=== PATIENT | female | born 1950 | race Caucasian/White ===

== ENCOUNTER 2024-09-04 11:55 | Emergency (ER) | payer MEDICARE, BC, SELFPAY ==
[2024-09-04 12:01] VITALS: RESP 16; TEMP 35.8; BMI 32.3
--- NOTE | 2024-09-04 12:23 | ED_ITS ---
HPI - General Adult General Chief complaint: Eye Problems Stated complaint: left eye bleeding Time Seen by Provider: 09/04/24 11:57 Source: patient Mode of arrival: ambulatory Limitations: no limitations History of Present Illness HPI narrative: 74-year-old female coming in today concerned about waking up this morning and noticing that there was blood in the white portion of her eye. Patient states that she had a botched cataract surgery in April of last year and she has been blind in that eye since. She states that she can only see the top Letter on an eye chart and nothing else. she states that her vision is unchanged. She denies pain in that eye. She denies discharge. She states that that ice constantly itching since her surgery and she rubs it quite constantly. She denies any trauma to the eye. She denies headache. She denies changes of vision in the other eye. patient is here today because she would like me to make sure that her lens is in the proper location. Related Data Allergies Allergy/AdvReac Type Severity Reaction Status Date / Time No Known Drug Allergies Allergy Verified 09/04/24 12:01 Review of Systems Status of ROS: Reports: 6 or more systems reviewed and unremarkable except as noted in History and below PFSH PFS Social History Smoking Status: Former smoker Do you use any of these nicotine containing products: None Second hand tobacco smoke exposure: No How often do you have a drink containing alcohol: never How often do you have six or more drinks on one occasion: Less than monthly AUDIT-C Alcohol total score: 1 Non-prescribed substance use: denies use service: No Exam Narrative: Exam Narrative: Well-nourished well-developed patient , anxious. Alert and oriented. Answers questions appropriately. Thoughts are goal oriented and rational. No tangential or magical thinking noted. Patient speaks in full sentences without needing to catch Her breath. HEENT: Normocephalic atraumatic. Extraocular muscles are intact. Conjunctivae are moist without any icterus noted. she has small conjunctival hemorrhage on the medial left eye. Moist mucous membranes. Pupils are reactive to light. No foreign body visualized. Skin: Well perfused. Const: Vital Signs, click to edit/add: Vital Signs - 24 hr 09/04/24 12:01 Temperature 96.5 F L Respiratory Rate 16 Oxygen Delivery Me thod Room Air Course Course ED Course: Discussed with the patient that I would not be able to tell her if her lens was in the proper location. Discussed that we would have to transfer her to an emergency department with an general maintenance helper however, without pain, without changes in vision, in without any other concerning symptoms did not feel that this was necessary. patient is, However given the option to do this and she declines. I do recommend she follow up in the Eye Clinic on Thursday morning. phone number of the [facility] is given to the patient upon discharge. I do recommend she follow up Emergently if she develops any pain or vision changes. Vital Signs Vital signs: Initial Vital Signs Temperature 96.5 F L 09/04/24 12:01 Temperature Source Temporal Artery Scan 09/04/24 12:01 Pulse Rhythm Regular 09/04/24 12:01 Respiratory Rate 16 09/04/24 12:01 Oxygen Delivery Method Room Air 09/04/24 12:01 Vital Signs Temperature 96.5 F L 09/04/24 12:01 Respiratory Rate 16 09/04/24 12:01 Oxygen Delivery Method Room Air 09/04/24 12:01 Temperature 96.5 F L 09/04/24 12:01 Respiratory Rate 16 09/04/24 12:01 Oxygen Delivery Method Room Air 09/04/24 12:01 Medical Decision Making MDM Narrative Medical decision making narrative: 74-year-old female with subconjunctival hemorrhage. Likely due to irritation from chronic itching of the eye. Plan per above. Discharge Plan Discharge Clinical Impression: Subconjunctival hemorrhage Patient Disposition: Home, Self-Care Condition: Stable Additional Instructions: The bleeding seen in the eye today is not an emergency and can occur secondary to irritation. I do recommend you follow up in the [facility] tomorrow. phone number will be provided to you upon discharge. If you develop any vision changes or pain in that eye, you should follow up in the emergency department. Stand Alone Forms: [employer] Info Instructions
--- OUTSIDE RECORDS SUMMARY | 2024-09-04 12:50 | XMS_ITS | Encounter Summary ---
Author Organization [facility] Address [address] [place] [id number] Care Team Providers Care Plate And Weld Inspector Name Role Phone Elsewhere, Pcp Primary Care Provider Unavailabl e Reason for Visit * Reason Onset Date Comments Pre-visit Testing Orders 08/03/2024 Encounter Details Date Type Department Care Team (Latest Contact Info) Description 08/03/2024 Clinical Communication Department of Ophthalmology in [place], [place] [address] [place] [address] Sylvie Parry M.D. [address] [place] [phone] Pre-visit Testing Orders Social History Tobacco Use Types Packs/Day Years Used Date Smoking Tobacco: Former Cigarettes Q uit: 06/01/2011 E-cigarettes Quit: 2019 Passive Smoke Exposure: Never Smokeless Tobacco: Never Comments:Quit several times over the years Alcohol Use Standard Drinks/Week Comments No 0 (1 standard drink = 0.6 oz pur e alcohol) [facility] Utilities Answer Date Recorded In the past 12 months has e electric, gas, oil, or water company threatened to shut off services in your home? No 05/16/2024 Humiliation, Afraid, Rape, and Kick questionnair e Answer Date Recorded Within the last year, have y ou been afraid of your partner or ex-partner? No 12/11/2022 Within the last year, have y ou been humiliated or emotionally abused in other ways by your partner or ex-partner? No Within the last year, have y ou been kicked, hit, slapped, or otherwise physically hurt by your partner or ex-partner? No 12/11/2022 Within the last year, have y ou been raped or forced to have any kind of sexual activity by your partner or ex-partner? No 12/11/2022 Social Connection and Isolat ion Panel [NHANES] Answer Date Recorded In a typical week, how many times do you talk on the phone with family, friends, or neighbors? More than three times a week 04/01/2021 How often do you get togethe r with friends or relatives? Once a week 04/01/2021 How often do you attend chur or scientologist services? Never 04/01/2021 Do you belong to any clubs o r organizations such as muslim groups, unions, fraternal or athletic groups, or school groups? No 04/01/2021 How often do you attend meet ings of the clubs or organizations you belong to? Never 04/01/2021 Are you , , di vorced, , never , or living with a partner? 04/01/2021 AUDIT-C Answer Date Recorded Q1: How often do you have a drink containing alc ohol? Never 04/01/2021 Average Number of Drinks Not on file 021 Frequency of Binge Drinking Not on file 06/2020 Overall Financial Resource Strain (CARDIA) Answe r Date Recorded How hard is it for you to pa y for the very basics like food, housing, medical care, and heating? Not hard at all 12/11/2022 PHQ-2 Answer Date Recorded PHQ-2 Score 6 05/30/2019 [facility] Occupat [facility] - Occupational Stress Questionnaire Answer Date Recorded Do you feel stress - tense, restless, nervous, or anxious, or unable to sleep at night because your mind is troubled all the time - these days? Rather much 04/01/2021 Exercise Vital Sign Answer Date Recorde d On average, how many days pe r week do you engage in moderate to strenuous exercise (like a brisk walk)? 7 days 05/16/2024 On average, how many minutes do you engage in exercise at this level? 40 min 05/16/2024 Hunger Vital Sign Answer Date Recorded Within the past 12 months, y ou worried that your food would run out before you got the money to buy more. Never true 05/16/20 24 Within the past 12 months, t he food you bought just didn't last and you didn't have money to get more. Never true 05/16/2024 PRAPARE - Transportation Answer Date Re corded In the past 12 months, has l ack of transportation kept you from medical appointments or from getting medications? No 05/01 In the past 12 months, has l ack of transportation kept you from meetings, work, or from getting things needed for daily living? No 05/16/2024 Nutrition Answer Date Recorded On average, how many serving s of fruits and vegetables do you eat per day (serving size is equal to 1 cup or approximately the size of a tennis ball)? 3-5 05/16/2024 Dental Answer Date Recorded Dental: Regular Dentist Yes 06/05/19 Employment Answer Date Recorded Employment status Retired 05/16/2024 Housing Stability Answer Date Recorded What is your living situation today? I have a [facility] place to live 05/16/2024 Education Answer Date Recorded What is the highest level of school you have completed or the highest degree you have received? Master's degree (e.g., MA, MS, Ivet, MEd, DIAGRAMMER AND SEAMER, INDY) 04/05/2019 Comments No Sex and Gender Information Value Date Recorded Sex Assigned at Female 11/02/2017 11:58 PM CDT Legal Sex Female 3:26 PM TOP SCREW Gender Identity Female 11/02/2017 11:58 PM CDT Sexual Orientation Straight 11/02/2017 11 :58 PM CDT documented as of this encounter Miscellaneous Notes * Telephone Encounter - Oksana Montez, C.O.T. - 08/09/2024 9:28 AM CDT Orders in documented in this encounter Plan of Treatment Upcoming Encounters Date Type Department Care Team (Latest Contact Info) Description 09/22/2024 12:30 PM CDT Ancillary Procedure Department of Ophthalmology in [place], [place] [address] [place] [address] 09/22/2024 1:00 PM CDT Ancillary Procedure Department of Ophthalmology in [place], [place] [address] [place] [phone] Sylvie Parry M.D. [address] [place] [phone] 09/22/2024 1:15 PM CDT Ancillary Procedure Department of Ophthalmology in [place], [place] [address] [place] [phone] Sylvie Parry M.D. [address] [place] [phone] 09/22/2024 2:45 PM CDT Comprehensive Visit Department of Ophthalmology in [place], [place] [address] [place] [phone] Sylvie Parry M.D. [address] [place] [phone] Scheduled Orders Name Type Priority Associated Diagnoses Orde r Schedule Scheimpflug Tomography (Pentacam) - OU - Both Eyes Ophthalmology Routine Other Hereditary Corneal Dystrophies Bilateral Expected: 08/09/2024 (Approximate), Expires: 08/09/2026 Optical Coherence Tomography - Macula/Retina - OU - Both Eyes Ophthalmology Routine Blurred Vision Expected: 08/09/2024 (Approximate), Expires: 08/09/2026 documented as of this encounter Visit Diagnoses Diagnosis Blurred Vision- Primary Other Hereditary Corneal Dystrophies Bilateral documented in this encounter Additional Health Concerns Assessment Noted Time PHQ-9 Depression Total Score: 21 019 1:40 PM TOP SCREW documented as of this encounter Care Teams Plate And Weld Inspector Relationship Specialty Start Date End Date Elsewhere, Pcp PCP - General Family Medicine 11/21/20 documented as of this encounter
--- OUTSIDE RECORDS SUMMARY | 2024-09-04 12:50 | XMS_ITS | Encounter Summary ---
Author Organization [facility] er Address [address] [place] [address] Care Team Providers Care Human Resources Trainee Name Role Phone Chayo Espinal MD Primary Care Provider [phone] Reason for Visit * Reason Comments Med Refill Encounter Details Date Type Department Care Team (Late st Contact Info) Description 06/15/2023 Refill SE Internal Medicine [address] [place] [phone] Chayo Espinal MD [address] [place] [phone] Insomnia, unspecified type Social History Tobacco Use Types Packs/Day Years Used Date Smoking Tobacco: Former Cigarettes 1 48 1 972 - 2012 Passive Smoke Exposure: Never Smokeless Tobacco: Never Alcohol Use Standard Drinks/Week Comments Never 0 (1 standard drink = 0.6 oz pur e alcohol) Humiliation, Afraid, Rape, and Kick questionnair e Answer Date Recorded Within the last year, have y ou been afraid of your partner or ex-partner? No 06/10/2023 Within the last year, have y ou been humiliated or emotionally abused in other ways by your partner or ex-partner? No Within the last year, have y ou been kicked, hit, slapped, or otherwise physically hurt by your partner or ex-partner? No 06/10/2023 Within the last year, have y ou been raped or forced to have any kind of sexual activity by your partner or ex-partner? No 06/10/2023 Social Connection and Isolat ion Panel [NHANES] Answer Date Recorded In a typical week, how many times do you talk on the phone with family, friends, or neighbors? More than three times a week 06/10/2023 How often do you get togethe r with friends or relatives? Once a week 06/10/2023 How often do you attend chur ch or congregational services? Never 06/10/2023 Do you belong to any clubs o r organizations such as buddhism groups, unions, fraternal or athletic groups, or school groups? No 06/10/2023 How often do you attend meet ings of the clubs or organizations you belong to? Never 06/10/2023 Are you , , di vorced, , never , or living with a partner? 06/10/2023 AUDIT-C Answer Date Recorded Q1: How often do you have a drink containing alcohol? Never 06/10/2023 Q2: How many drinks containi ng alcohol do you have on a typical day when you are drinking? Patient does not drink Q3: How often do you have si x or more drinks on one occasion? Never 06/10/2023 Overall Financial Resource Strain (CARDIA) Answe r Date Recorded How hard is it for you to pa y for the very basics like food, housing, medical care, and heating? Not hard at all 06/10/2023 PHQ-2 Answer Date Recorded PHQ-9 Total Score 18 06/10/2023 [facility] Questionnaire Answer Date Recorded Do you feel stress - tense, restless, nervous, or anxious, or unable to sleep at night because your mind is troubled all the time - these days? Very much 06/10/2023 Exercise Vital Sign Answer Date Recorde d On average, how many days pe r week do you engage in moderate to strenuous exercise (like a brisk walk)? 5 days 06/10/2023 On average, how many minutes do you engage in exercise at this level? 40 min 06/10/2023 Hunger Vital Sign Answer Date Recorded Within the past 12 months, y ou worried that your food would run out before you got the money to buy more. Never true 06/10/19 24 Within the past 12 months, t he food you bought just didn't last and you didn't have money to get more. Never true 06/10/2023 PRAPARE - Transportation Answer Date Re corded In the past 12 months, has l ack of transportation kept you from medical appointments or from getting medications? No 06/01 In the past 12 months, has l ack of transportation kept you from meetings, work, or from getting things needed for daily living? No 06/10/2023 Housing Stability Vital Sign Answer Ed e Recorded In the last 12 months, was t here a time when you were not able to pay the mortgage or rent on time? No 06/10/2023 In the last 12 months, how many places have you lived? 1 06/10/2023 In the last 12 months, was t here a time when you did not have a steady place to sleep or slept in a long-term (including now)? No 06/10/2023 Education Answer Date Recorded What is the highest level of school you have completed or the highest degree you have received? Bachelor's degree (e.g., BA, AB, BS) 08/12/2019 Comments Unknown Sex and Gender Information Value Date Recorded Sex Assigned at Female 04/29/2022 4:47 PM STANDARDS ENGINEER Legal Sex Female 7:50 PM CDT Gender Identity Female 04/29/2022 4:47 PM STANDARDS ENGINEER Sexual Orientation Straight 04/29/2022 4: 47 PM STANDARDS ENGINEER documented as of this encounter Miscellaneous Notes * Telephone Encounter - Glenis Weinstein RN - 06/15/2023 1:19 PM CST Upcoming appointment with provider: 08/11/2023 Last visit in provider department: 06/11/2023 Last visit requested medication was discussed: Last Rx: Requested Prescriptions Pending Prescriptions Disp Refills zolpidem (AMBIEN) 5 MG tablet [Pharmacy Med Name: Zolpidem Tartrate Oral Tablet 5 MG] 15 tablet 0 Sig: TAKE ONE TABLET BY MOUTH ONE TIME DAILY at night as needed for sleep Labs: Vitals: BP Readings from Last 2 Encounters: 06/11/23 126/66 09/23/22 128/74 Last Controlled Substance Agreement (CSA): Last Random Urine Drug Screen (RUDS): DARDS ENGINEER documented in this encounter Plan of Treatment Upcoming Encounters Date Type Department Care Team (Late st Contact Info) Description 09/29/2024 3:30 PM CDT Office Visit Internal Medicine [address] [place] [phone] Chayo Espinal MD [address] [place] [phone] documented as of this encounter Visit Diagnoses Diagnosis Insomnia, unspecified type documented in this encounter Care Teams Human Resources Trainee Relationship Specialty Start Date End Date Chayo Espinal MD [address] [place] [phone] PCP - General Internal Medicine 09/12/19 documented as of this encounter
--- OUTSIDE RECORDS SUMMARY | 2024-09-04 12:50 | XMS_ITS | Encounter Summary ---
Author Organization [facility] Address [address] [place] [address] Care Team Providers Care Graduate Assistant Name Role Phone Elsewhere, Pcp Primary Care Provider Unavailabl e Reason for Visit * Reason Onset Date Comments Appt Request 08/01/2024 Encounter Details Date Type Department Care Team (Latest Contact Info) Description 08/01/2024 Clinical Communication Department of Ophthalmology in [place], [place] [address] [place] [address] Provider, Unknown Appt Request Social History Tobacco Use Types Packs/Day Years Used Date Smoking Tobacco: Former Cigarettes Q uit: 06/01/2011 E-cigarettes Quit: 2019 Passive Smoke Exposure: Never Smokeless Tobacco: Never Comments:Quit several times over the years Alcohol Use Standard Drinks/Week Comments No 0 (1 standard drink = 0.6 oz pur e alcohol) [facility] Utilities Answer Date Recorded In the past 12 months has [facility] [employer] gas, oil, or water [employer] threatened to shut off services in your [...] 04/01/2021 How often do you attend chur ch or hoahaoism services? Never 04/01/2021 Do you belong to any clubs o r organizations such as pentecostal groups, unions, fraternal or athletic groups, or [...] Answer Date Recorded PHQ-2 Score 6 05/30/2019 [facility]at iondc Health - Occupational Stress Questionnaire Answer Date [...] your living situation today? I have a [facility] place to live 05/16/2024 Education Answer Date Recorded What is the highest level of school you have completed or the highest degree you have received? Master's degree (e.g., MA, MS, Ivet, MEd, PRACTICE REPRESENTATIVE, INDY) 04/05/2019 Comments No Sex and Gender Information Value Date Recorded Sex Assigned at Female 11/02/2017 11:58 PM CDT Legal Sex Female 3:26 PM FINISH PATCHER Gender Identity Female 11/02/2017 11:58 PM CDT Sexual Orientation Straight 11/02/2017 11 :58 PM CDT documented as of this encounter Plan of Treatment Upcoming Encounters Date Type Department Care Team (Latest Contact Info) Description 09/22/2024 12:30 PM CDT Ancillary Procedure Department of Ophthalmology in [place], [place] [address] [place] [address] 09/22/2024 1:00 PM CDT Ancillary Procedure Department of Ophthalmology in [place], [place] [address] [place] [phone] Sylive Parry M.D. [address] [place] [phone] 09/22/2024 1:15 PM CDT Ancillary Procedure Department of Ophthalmology in [place], [place] [address] [place] [address] Sylvie Parry M.D. [address] [place] [phone] 09/22/2024 2:45 PM CDT Comprehensive Visit Department of Ophthalmology in [place], [place] [address] [place] [phone] Sylvie Parry M.D. [address] [place] [phone] documented as of this encounter Visit Diagnoses Not on filedocumented in this encounter Additional Health Concerns Assessment Noted Time PHQ-9 Depression Total Score: 21 019 1:40 PM FINISH PATCHER documented as of this encounter Care Teams Graduate Assistant Relationship Specialty Start Date End Date Elsewhere, Pcp PCP - General Family Medicine 11/21/20 documented as of this encounter
--- OUTSIDE RECORDS SUMMARY | 2024-09-04 12:50 | XMS_ITS | Clinical Summary ---
Author Organization [facility] Address [address] [place] [address] Care Team Providers Care Category Development Manager Name Role Phone Elsewhere, Pcp Primary Care Provider Unavailabl e Source Comments Patient records contain information from all sites at [facility]. For routine questions regarding patient records, call [phone] during business hours, M-F 8:00 AM - 5:00 PM Central Time. Record requests for emergency care only can be directed to [phone] at any time.[facility] Allergies No known active allergies Medications * This document contains information received from the source organization and may not represent a complete record from that organization. calcium carbonate-vit D3-min 600 mg calcium- 400 unit tablet Take 1 tablet by mouth daily. 9 Active cinnamon bark (CINNAMON) 500 mg capsule Take 1 capsule by mouth daily. 9 Active DOCOSAHEXANOIC ACID/EPA (FISH OIL ORAL) Take 1 capsule by mouth daily. 9 Active flaxseed oil 1,000 mg capsule Take 1 capsule by mouth daily. 8 Active garlic 1,000 mg capsule Take 1 capsule by mouth daily. 9 Active THOMAS ROOT (THOMAS, ZINGIBER OFFICINALIS,) 550 mg capsule Take 1 capsule by mouth daily. 9 Active MAGNESIUM MALATE, BULK, MISC Take 1 tablet by mouth daily. 9 Active multivitamin tablet Take 1 tablet by mouth daily. 8 Active bqoz-wnxh-yuc-benites x-hil-itkn-hor [phone] mg tablet Take 1 tablet by mouth daily. 0 Active VALERIAN ROOT ORAL Take 1 capsule by mouth every evening. 7 Active pravastatin (PRAVACHOL) 20 mg tablet Take 1 tablet (20 mg total) by mouth daily. 100 tablet 3 9 Active valACYclovir (Valtrex) 1000 mg tablet Take 2 tablets (2,000 mg total) by mouth 2 (two) times a day. As needed for cold sores 20 tablet 5 0 Active Additional Information Patient taking differently:2,000 mg oral2 times daily PRN, As needed for cold sores, Reported on 05/19/2024 zolpidem (AMBIEN) 5 mg tablet TAKE ONE TABLET BY MOUTH AT BEDTIME NEEDED FOR SLEEP 30 tablet 0 Active bisacodyL (DULCOLAX) 5 mg EC tabletIndication s:Polyp Colon Adenomatous Personal History Take 4 tabs at 5 pm the evening prior to colonoscopy. Start Miralax/Gatorad e mixture 2 hours later. 4 tablet 0 Active Additional Information Patient not taking.Reported on 05/19/2024 melatonin 10 mg tablet Take 30 mg by mouth. 7 Active ubidecarenone/vi tamin E mixed (COQ10 SG 100 ORAL) 3 Active DULoxetine (CYMBALTA) [address] capsule Take 1 capsule by mouth daily. 3 Active celecoxib (CeleBREX) 100 mg capsule Take 100 mg by mouth 2 (two) times a day. 4 Active levothyroxine (SYNTHROID, LEVOTHROID) 50 mcg tablet Take 50 mcg by mouth every morning before breakfast. 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 Advised that this does not pose a risk to her health. [place] score of 0/24 Advised weight loss. No CPAP needed. 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 With regard to the peripheral joints there is also no specific finding of synovitis that would suggest that this is definitely presentation of an inflammatory arthritis.Advised NSAIDS and follow-up. Polyp Colon Adenomatous Personal History 011 Overview (09/19/2020): Colonoscopy 09/2016- 5 polyps. Tubular adenoma and hyperplastic polyps. Advised repeat in 3 years (09/2019). 09/17/20 Colonoscopy- Two 3 to 4 mm polyps in the transverse colon. Bleeding internal hemorrhoids were also noted. Pathology- Polypoid colonic mucosa with lymphoid aggregate. No dysplasia. Advised next colonoscopy in 5 years (August 2025). Per GI- Patient should be STAFF ONLY given the difficulty of the procedure and the time required to advance to the cecum. Impaired Fasting Glucose 12/12/2008 Hyperlipidemia 05/13/2007 Depression Anxiety 04/12/2007 Chronic Pain Syndrome 04/12/2007 Limitation Of Motion Hand Joint Left Encounters Date Type Department Care Team Description 08/16/2024 2:30 PM CDT Comprehensive Visit Division of Hepatobiliary and Pancreas Surgery in [place], [place] [address] [place] [address] Roland Scanlon M.D., M.S. Doyle Yen M.D. Pancreas Intraductal Papillary Mucinous Benign (Primary Dx); Cyst Pancreas 08/03/2024 Clinical Communication Department of Ophthalmology in [place], [place] [address] [place] [address] Sylvie Parry M.D. Pre-visit Testing Orders 08/01/2024 Clinical Communication Department of Ophthalmology in [place], [place] [address] [place] [address] Provider, Unknown Appt Request 07/21/2024 Community Orders [facility] [address] [place] [address] Chayo Espinal M.D. Blurred Vision (Primary Dx) from Last 3 Months Immunizations Immunization Administration Dates Next Due HZV (ZOSTAVAX) 07/01/2013 Influenza Split 02/26/2015, 4,04/01/2013,2011,03/17/2011,03/20/2010,03/24/2007 PCV13 10/31/2016 PPSV23 10/29/2002 Td, (Adult) Unspecified 11/18/2006 Tdap 11/19/2011 influenza trivalent high dos e (HD)(PF) 03/08/2018,03/01/2017,03/11/2016 influenza vaccine quad (FLUZONE/FLUARIX) (6 months and older)(PF) 03/10/2019 Family History Medical History Relation Name Comments Colon polyps Daughter Bailee Migraines Daughter Bailee Thyroid disease Daughter Bailee Colon cancer Father Srinivas Coronary artery disease Father Srinivas Hyperlipidemia Father Srinivas Arthritis Mother Guerda Bleeding Disorder Mother Guerda Coronary artery disease Mother Guerda Hear t Failure Diabetes Mother Guerda Hyperlipidemia Mother Guerda Hypertension Mother Guerda Migraines Mother Guerda Obesity Mother Guerda Stroke Paternal Grandmother Narda Anxiety disorder Sister Tim Arthritis Sister Tim Depression Sister Tim Hypertension Sister Tim Osteoporosis Sister Tim Psychiatric Sister Tim Sleep apnea Sister Tim Suicide Attempts Sister Tim Suicide Attempts Son Harish 2012 Relation Name Status Comments Daughter Bailee Father Srinivas Alive Mother Guerda Alive Paternal Grandmother Narda Alive Sister Tim Alive Son Harish Alive Social History Tobacco Use Types Packs/Day Years Used Date Smoking Tobacco: Former Cigarettes Q uit: 06/01/2011 E-cigarettes Quit: 2019 Passive Smoke Exposure: Never Smokeless Tobacco: Never Comments:Quit several times over the years Alcohol Use Standard Drinks/Week Comments No 0 (1 standard drink = 0.6 oz pur e alcohol) [facility] Utilities Answer Date Recorded In the past 12 months has th e electric, gas, oil, or water company [...] often do you attend chur ch or hindu services? Never 04/01/2021 Do you belong to any clubs o r organizations such as cheondoism groups, unions, fraternal or athletic groups, or [...] Answer Date Recorded PHQ-2 Score 6 05/30/2019 [facility] of Occupat ional Health - Occupational Stress [...] your living situation today? I have a [facility] place to live 05/16/2024 Education Answer Date Recorded What is the highest level of school you have completed or the highest degree you have received? Master's degree (e.g., MA, MS, Ivet, MEd, MACHINE OPERATOR PICKER, INDY) 04/05/2019 Comments No Sex and Gender Information Value Date Recorded Sex Assigned at Female 11/02/2017 11:58 PM CDT Legal Sex Female 3:26 PM UTILITY SPECIALIST Gender Identity Female 11/02/2017 11:58 PM CDT Sexual Orientation Straight 11/02/2017 11 :58 PM CDT Last Filed Vital Signs Vital Sign Reading Time Taken Comments Blood Pressure 114/85 09/02/2023 1:00 PM CDT Pulse 73 09/02/2023 1:02 PM CDT Temperature 36.5 C (97.7 F) 09/02/2023 1:03 PM CDT Respiratory Rate 12 09/02/2023 1:02 PM CDT Oxygen Saturation 89% 09/02/2023 1:02 PM CDT Inhaled Oxygen Concentration - - Weight 92.5 kg (203 lb 14.8 oz) 08/18/2023 3:00 PM CDT Height 171 cm (5' 7.32) 08/18/2023 3:00 PM CDT Body Mass Index 31.63 08/18/2023 3:00 PM CDT Plan of Treatment Upcoming Encounters Date Type Department Care Team (Latest Contact Info) Description 09/22/2024 12:30 PM CDT Ancillary Procedure Department of Ophthalmology in [place], [place] [address] [place] [phone] 09/22/2024 1:00 PM CDT Ancillary Procedure Department of Ophthalmology in [place], [place] [address] [place] [phone] Sylvie Parry M.D. [address] [place] [phone] 09/22/2024 1:15 PM CDT Ancillary Procedure Department of Ophthalmology in [place], [place] [address] [place] [phone] Sylvie Parry M.D. [address] [place] [phone] 09/22/2024 2:45 PM CDT Comprehensive Visit Department of Ophthalmology in [place], [place] [address] [place] [phone] Sylvie Parry M.D. [address] [place] [phone] Health Maintenance Due Date Last Done Comments CT Colonography 1950 Cologuard 1950 Diabetic Office Visit with Foot Exam 1950 Dilated Eye Exam 1950 Urine Albumin 1950 Hepatitis B Vaccines (1 of 3 - Risk 3-dose series) 2011 Zoster Vaccines (2 of 3) 08/26/2013 07/01/2013 Pneumococcal vaccine (50+ years) (3 of 3 - PCV20 or PCV21) 10/31/2021 10/31/2016, 10/29/2002 DTaP,Tdap,and Td Vaccines (2 - Td or Tdap) 11/18/2021 11/19/2011, 11/18/2006 Colonoscopy 09/18/2023 09/17/2020, 08/30, 10/03/2016, Additional history exists Colorectal Cancer Surveillance 09/18/2023 Depression Screening (Annual PHQ-2) 06/01/2024 Fall Risk Screen (Annual) 06/01/2024 Office Visit for Blood Pressure Check / Re-check 08/17/2024 08/18/2023 COVID-19 Vaccine ( season) 2024 03/10/2024, 03/03/2023, 04/11/2022, Additional history exists Mammogram 11/08/2024 11/09/2023, 10/30, 11/05/2022, Additional history exists Hemoglobin A1C 11/18/2024 05/20/2024, 08/2023, 05/06/2022, Additional history exists Creatinine Level (Kidney Function Test) 05/20/2025 05/20/2024, 05/20/2024, 07/10/2023, Additional history exists Lipid (Cholesterol) Screening 05/20/2025 05/20/2024, 06/04/2023, 05/06/2022, Additional history exists Thyroid Stimulating Hormone (TSH) test for thyroid function 05/20/2025 05/20/2024, 06/04/2023, 05/08/2021, Additional history exists Hepatitis C Screening Completed 06/06/2019 Influenza Vaccine Completed 02/09/2024, , 04/04/2022, Additional history exists IPV Vaccines Aged Out No longer eligi ble based on patient's age to complete this topic Procedures Procedure Name Priority Date/Time Associated Diagnosis Comments CREATININE WITH EGFR, S/P Routine 05/20/2024 10:39 AM UTILITY SPECIALIST Cyst Pancreas BI BREAST SCREENING BILATERAL WITH TOMOSYNTHESIS RAD - Routine (most inpatients and all outpatients) 11/09/2023 1:31 PM CDT Screening Mammogram Breast Cancer COLONOSCOPY Routine 09/17/2020 10:57 AM CDT Polyp Colon Adenomatous Personal History HCV AB SCRN W/REFLEX TO HCV PCR, S Routine 06/06/2019 10:22 AM UTILITY SPECIALIST Screening Test Laboratory THYROID FUNCTION CASCADE, S Routine 06/06/2019 10:22 AM UTILITY SPECIALIST Fibromyalgia Chronic Pain Syndrome Arthritis Inflammatory (HCC) HEMOGLOBIN A1C, B Routine 04/05/2019 10:41 AM UTILITY SPECIALIST Screening Test Laboratory LIPID PANEL, S Routine 04/05/2019 10:41 AM UTILITY SPECIALIST Screening Test Laboratory from Last 3 Months or Most Recently Relevant to Health Maintenance Results * Creatinine with Estimated GFR (05/20/2024 10:39 AM UTILITY SPECIALIST) Creatinine 0.84 0.59 - 1.04 mg/dL 05/20/2024 11:43 AM UTILITY SPECIALIST DTL Estimated GFR (eGFR) 74 >=60 mL/min/BSA 05/20/2024 11:43 AM UTILITY SPECIALIST DTL Comment: Estimated GFR calculated using the 2020 CKD_EPI creatinine equation. Blood (Blood, Venous) 05/20/2024 10:39 AM UTILITY SPECIALIST 05/20/2024 11:22 AM UTILITY SPECIALIST us Doyle Yen M.D. LAB BLOOD ADD-ON Final Res ult [facility] [address] [place] [address], [facility] DTL [facility] [address] [place] [address] * BI Breast Screening Bilateral with Tomosynthesis (11/09/2023 1:31 PM CDT) Anatomical Region Laterality Modality Breast, Breast Imaging RST L OS, Breast Imaging ARZ LOS, Breast Imaging FLA LOS Bilateral Mammography Impressions 11/09/2023 1:52 PM CDT Negative. RECOMMENDATION: Annual Screening Mammogram ASSESSMENT: BI-RADS: 1: Negative. Narrative 11/09/2023 1:52 PM CDT EXAM: BI BREAST SCREENING BILATERAL WITH TOMOSYNTHESIS Current study was evaluated with a Computer Aided Detection (CAD) system. INDICATION: Screening mammogram. COMPARISON: Prior exam(s) were available and reviewed for comparison. DENSITY: a. The breast(s) are almost entirely fatty. FINDINGS: No findings of malignancy. No significant change since prior exam. Procedure Note Christine Rodriguez M.D. - 11/09/2023 EXAM: BI BREAST SCREENING BILATERAL WITH TOMOSYNTHESIS Current study was evaluated with a Computer Aided Detection (CAD) system. INDICATION: Screening mammogram. COMPARISON: Prior exam(s) were available and reviewed for comparison. DENSITY: a. The breast(s) are almost entirely fatty. FINDINGS: No findings of malignancy. No significant change since priorexam. IMPRESSION: Negative. RECOMMENDATION: Annual Screening Mammogram ASSESSMENT: BI-RADS: 1: Negative. Maru Rosado M.D. IMG BI PROCEDURES Final Result * Thyroid Function Morris (06/06/2019 10:22 AM UTILITY SPECIALIST) TSH, Sensitive 3.5 0.3 - 4.2 mIU/L 06/06/2019 2:18 PM UTILITY SPECIALIST DT Blood (Blood, Venous) 06/06/2019 10:22 AM UTILITY SPECIALIST 06/06/2019 1:11 PM UTILITY SPECIALIST Saul Reddy M.D. LAB BLOOD ADD-ON Final Result [facility] [address] [place] [address], [facility] [address] [place] [address] * HCV Ab Scrn w/Reflex to HCV PCR, Serum (06/06/2019 10:22 AM UTILITY SPECIALIST) HCV Ab Screen, S Negative Negative 06/06/2019 9:47 PM UTILITY SPECIALIST [facility] Comment:Wysokc-xp-egclct rat io is <1.00. Blood (Blood, Venous) 06/06/2019 10:22 AM UTILITY SPECIALIST 06/06/2019 6:23 PM UTILITY SPECIALIST us Saul Reddy M.D. LAB MICROBIOLOGY - BLOOD SOTERO [place] Final Result Performing Organization Address City/[facility]/ZIP Co de Phone Number [facility] [address] [place] [address] [facility] Dept. of Laboratory Medicine and Pathology [address] [place] [address] * Lipid Panel (04/05/2019 10:41 AM UTILITY SPECIALIST) Cholesterol, Total 168 mg/dL 2018 3:54 PM UTILITY SPECIALIST DTL Comment: ----REFERENCE VALUE---- Desirable: < 200 Borderline high: 200 - 239 High: > or = 240 Triglycerides 136 mg/dL 04/05/2019 3:54 PM UTILITY SPECIALIST DTL Comment: ----REFERENCE VALUE---- Normal: <150 Borderline high: 150-199 High: 200-499 Very high: > or =500 Cholesterol, HDL, S 50 >=50 mg/dL 04/05/2019 3:54 PM UTILITY SPECIALIST DTL Calculated LDL 91 mg/dL 04/05/2019 3:54 PM UTILITY SPECIALIST DTL Comment: ----REFERENCE VALUE---- Desirable: <100 Above Desirable: 100-129 Borderline high: 130-159 High: 160-189 Very high: > or =190 Cholesterol, Non-HDL, Calculated 118 mg/dL 04/05/2019 3:54 PM UTILITY SPECIALIST DTL Comment: ----REFERENCE VALUE---- Desirable: <130 Above Desirable: 130-159 Borderline high: 160-189 High: 190-219 Very high: > or =220 Blood (Blood, Venous) 04/05/2019 10:41 AM UTILITY SPECIALIST 04/05/2019 2:09 PM UTILITY SPECIALIST Peri Herron M.D., M.P.H. LAB BLOOD ADD-ON Fin al Result Performing Organization Address City/[facility]/ZIP Co de Phone Number [facility] [address] [facility] [address] [place] [address] * (ABNORMAL) Hemoglobin A1c (04/05/2019 10:41 AM UTILITY SPECIALIST) Hemoglobin A1c, B 6.0(H) 4.0 - 5.6 % 04/05/2019 12:03 PM UTILITY SPECIALIST DTL Comment: Hemoglobin A1c values of 5.7-6.4 percent indicate an increased risk for developing diabetes mellitus. In diabetic patients, HbA1c goals should be discussed with healthcare provider. Blood (Blood, Venous) 04/05/2019 10:41 AM UTILITY SPECIALIST 04/05/2019 11:46 AM UTILITY SPECIALIST Peri Herron M.D., M.P.H. LAB BLOOD ADD-ON Fin al Result [facility] [address] [place], [place] [address] [address] [place] [address] from Last 3 Months or Most Recently Relevant to Health Maintenance Insurance MEDICARE [facility] Advance Directives For more information, please contact: [phone] Documents on File Type Date Recorded Patient Bit Sharpener Expl anation Advance Directives 01/18/2021 3:30 PM Bailee Apple earlene Oli POA for health care Healthcare Agents on File Name Relationship Healthcare Agent Relationship Communication Bailee Spann Daughter Health Care Agent José Miguel Baird Son In-Law Health Care Agent Care Teams Category Development Manager Relationship Specialty Start Date End Date Elsewhere, Pcp PCP - General Family Medicine 11/21/20
--- OUTSIDE RECORDS SUMMARY | 2024-09-04 12:50 | XMS_ITS | Encounter Summary ---
Author Organization [facility] Address [address] [place] [address] Care Team Providers Care Electrocardiograph Operator Name Role Phone Chayo Espinal MD Primary Care Provider [phone] Reason for Referral * Consultation (Routine) - Closed Specialty Diagnoses / Procedures Referred By Contac t Referred To Contact Diagnoses Hypoglobulinemia Chayo Espinal MD [address] [place] [address] Phone: tel: fax: [place] - Referrals [address] [place] [address] Phone: tel: fax: Referral ID Status Reason Start Date Expiration Date Visits Re quested Visits Authorized [id number] Closed 08/18/2019 08/17/2020 1 1 Scheduling Instructions This is to immunology and allergy Encounter Details Date Type Department Care Team (Latest Contact Info) Description 08/18/2019 Orders Only [facility] [address] [place] [address] Chayo Espinal MD [address] [place] [address] Hypogammaglobulinemia (HCC) (Primary Dx); Hypoglobulinemia Social History Tobacco Use Types Packs/Day Years Used Date Smoking Tobacco: Former Cigarettes 1 48 1 972 - 2012 Smokeless Tobacco: Never Alcohol Use Standard Drinks/Week Comments Never 0 (1 standard drink = 0.6 oz pur e alcohol) Humiliation, Afraid, Rape, and Kick questionnair e Answer Date Recorded Fear of Current or Ex-Partner No Emotionally Abused No 08/12/2019 Physically Abused No 08/12/2019 Sexually Abused No 08/12/2019 Social Connection and Isolat ion Panel [NHANES] Answer Date Recorded Frequency of Communication w ith Friends and Family More than three times a week 08/12/2019 Frequency of Social Gatherin gs with Friends and Family Once a week 08/12/2019 Attends Voodoo Services Never 08/11 Active Member of Clubs or Organizations No 08/12/2019 Attends Club or Organization Meetings Never 08/12/2019 Marital Status 08/12/2019 AUDIT-C Answer Date Recorded Frequency of Alcohol Consumption Never 08/12/2019 Average Number of Drinks Not on file 020 Frequency of Binge Drinking Not on file 07/30 Overall Financial Resource Strain (CARDIA) Answe r Date Recorded Difficulty of Paying Living Expenses Not hard at all 08/12/2019 PHQ-2 Answer Date Recorded PHQ-2 Score 16 08/12/2019 [facility] of Occupat ional Health - Occupational Stress Questionnaire Answer Date Recorded Feeling of Stress Very much 08/12/2019 Exercise Vital Sign Answer Date Recorde d Days of Exercise per Week 0 days 2019 Minutes of Exercise per Session 0 min 08/12/2019 Hunger Vital Sign Answer Date Recorded Worried About Running Out of Food in the Last Ye ar Never true 08/12/2019 Ran Out of Food in the Last Year Never true 08/12/2019 PRAPARE - Transportation Answer Date Re corded Lack of Transportation (Medical) No 08/12/2019 Lack of Transportation (Non-Medical) No 08/12/2019 Education Answer Date Recorded What is the highest level of school you have completed or the highest degree you have received? Bachelor's degree (e.g., BA, AB, BS) 08/12/2019 Comments Unknown Sex and Gender Information Value Date Recorded Sex Assigned at Female 04/29/2022 4:47 PM FUR BLENDER Legal Sex Female 7:50 PM CDT Gender Identity Female 04/29/2022 4:47 PM FUR BLENDER Sexual Orientation Straight 04/29/2022 4: 47 PM FUR BLENDER documented as of this encounter Plan of Treatment Upcoming Encounters Date Type Department Care Team (Late st Contact Info) Description 09/29/2024 3:30 PM CDT Office Visit [facility] [address] [place] [address] Chayo Espinal MD [address] [place] [phone] Scheduled Referrals Name Type Priority Associated Diagnoses Order Schedule Ambulatory External Referral Outpatient Referral Routine Hypoglobulinemia Ordered: 08/18/2019 documented as of this encounter Visit Diagnoses Diagnosis Hypogammaglobulinemia (HCC)- Primary Unspecified hypogammaglobulinemia Hypoglobulinemia documented in this encounter Additional Health Concerns Infection Onset Date Last Indicated Resolved Time COVID-19 Rule Out 08/31/2019 08/31/2019 08/31/2019 3:10 PM CDT COVID-19 Rule Out 06/11/2021 06/11/2021 06/11/2021 11:35 PM FUR BLENDER COVID-19 Rule Out 03/05/2022 03/05/2022 03/05/2022 5:10 PM CDT documented as of this encounter Care Teams Electrocardiograph Operator Relationship Specialty Start Date End Date Chayo Espinal MD [address] [place] [phone] PCP - General Internal Medicine 09/12/19 documented as of this encounter
--- OUTSIDE RECORDS SUMMARY | 2024-09-04 12:51 | XMS_ITS | Encounter Summary ---
Author Organization [facility] er Address [address] [place] [address] Care Team Providers Care Mail Carrier And Clerk Name Role Phone Chayo Espinal MD Primary Care Provider [phone] Reason for Visit * Reason Comments Med Refill Encounter Details Date Type Department Care Team (Late st Contact Info) Description 08/17/2024 Refill [facility] Internal Medicine [address] [place] [id number] Chayo Espinal MD 210 [place] [address] Inflammatory polyarthropathy (HCC); Insomnia, unspecified type Social History Tobacco Use Types Packs/Day Years Used Date Smoking Tobacco: Former Cigarettes 1 48 1 2012 Passive Smoke Exposure: Never Smokeless Tobacco: Never Alcohol Use Standard Drinks/Week Comments Never 0 (1 standard drink = 0.6 oz pur e alcohol) B1300 Health Literacy Answer Date Recor ded How often do you need to hav e someone help you when you read instructions, pamphlets, or other written material from your doctor or pharmacy? Never 06/17/2024 [facility] Utilities Answer Date Recorded In the past 12 months has e electric, gas, oil, or water company threatened to shut off services in your home? No 06/17/2024 Humiliation, Afraid, Rape, and Kick questionnair e [...] or ex-partner? No 06/10/2023 Social Connection and Isolation Panel [NHANES] A nswer Date Recorded In a typical week, how many times do you talk on the phone with family, friends, or neighbors? Never 06/17/2024 How often do you get together with friends or re latives? Once a week 06/17/2024 How often do you attend jain or mormonism serv ices? Never 06/17/2024 Do you belong to any clubs o r organizations such as jain groups, unions, fraternal or athletic groups, or school groups? No 06/17/2024 How often do you attend meet ings of the clubs or organizations you belong to? Never 06/17/2024 Are you , , di vorced, , never , or living with a partner? 06/17/2024 AUDIT-C Answer Date Recorded Q1: How often do you have a drink containing alcohol? Never 06/17/2024 Q2: How many drinks containi ng alcohol do you have on a typical day when you are drinking? Patient does not drink Q3: How often do you have si x or more drinks on one occasion? Never 06/17/2024 Overall Financial Resource Strain (CARDIA) Answe r Date Recorded How hard is it for you to pa y for the very basics like food, housing, medical care, and heating? Not very hard 06/17/2024 PHQ-2 Answer Date Recorded PHQ-9 Total Score 19 06/17/2024 [facility] of Occupat ional Health - Occupational Stress Questionnaire Answer Date Recorded Do you feel stress - tense, restless, nervous, or anxious, or unable to sleep at night because your mind is troubled all the time - these days? Very much 06/17/2024 Exercise Vital Sign Answer Date Recorde d On average, how many days pe r week do you engage in moderate to strenuous exercise (like a brisk walk)? 7 days 06/17/2024 On average, how many minutes do you engage in exercise at this level? 40 min 06/17/2024 Hunger Vital Sign Answer Date Recorded Within the past 12 months, y ou worried that your food would run out before you got the money to buy more. Never true 06/17/19 25 Within the past 12 months, t he food you bought just didn't last and you didn't have money to get more. Never true 06/17/2024 PRAPARE - Transportation Answer Date Re corded In the past 12 months, has l ack of transportation kept you from medical appointments or from getting medications? No 06/01 In the past 12 months, has l ack of transportation kept you from meetings, work, or from getting things needed for daily living? No 06/17/2024 Housing Stability Vital Sign Answer Ed e [...] in a long-term (including now)? No 06/10/2023 Housing Stability Vital Sign Answer Ed e Recorded In the last 12 months, was t here a time when you were not able to pay the mortgage or rent on time? No 06/17/2024 In the past 12 months, how m any times have you moved where you were living? 1 06/17/2024 At any time in the past 12 m [facility] [place], were you homeless or living in a long-term (including now)? No 06/17/2024 Education Answer Date Recorded What is the highest level of school you have completed or the highest degree you have received? Bachelor's degree (e.g., BA, AB, BS) 08/12/2019 Comments No Sex and Gender Information Value Date Recorded Sex Assigned at Female 04/29/2022 4:47 PM AIRCRAFT ORDNANCE SYSTEMS MECHANIC Legal Sex Female 7:50 PM CDT Gender Identity Female 04/29/2022 4:47 PM AIRCRAFT ORDNANCE SYSTEMS MECHANIC Sexual Orientation Straight 04/29/2022 4: 47 PM AIRCRAFT ORDNANCE SYSTEMS MECHANIC documented as of this encounter Miscellaneous Notes * Telephone Encounter - Xochilt Arnold RAJEEV Tillman - 08/19/2024 2:04 PM CDT Upcoming appointment with provider: 09/29/2024 Last visit in provider department: 02/09/2024 Dr. Vitale Pre-Op 11/12/2023 Dr. Espinal Last visit requested medication was discussed: 11/12/2023 Return in about 6 months (around 05/13/2024) for Recheck. 06/17/2024 PHQ-9 19 ANTONELLA-7 14 Last Rx: zolpidem (AMBIEN) 5 MG tablet #15 no refills 12/14/2023 celecoxib (CeleBREX) 100 MG capsule #120 no refills 06/06/2024 DULoxetine (CYMBALTA) [address] capsule #90 +3 refills 08/10/2023 Requested Prescriptions Pending Prescriptions Disp Refills DULoxetine (CYMBALTA) [address] capsule [Pharmacy Med Name: DULoxetine HCl Oral Capsule Delayed Release Particles 60 MG] 90 capsule 0 Sig: TAKE ONE CAPSULE BY MOUTH ONE TIME DAILY zolpidem (AMBIEN) 5 MG tablet [Pharmacy Med Name: Zolpidem Tartrate Oral Tablet 5 MG] 15 tablet 0 Sig: TAKE ONE TABLET BY MOUTH AT BEDTIME NEEDED FOR SLEEP celecoxib (CeleBREX) 100 MG capsule [Pharmacy Med Name: Celecoxib Oral Capsule 100 MG] 120 capsule 0 Sig: TAKE ONE CAPSULE BY MOUTH TWICE DAILY WITH FOOD Labs: Component Latest Ref Rn 05/20/2024 Sed Rate 0 - 29 mm/hr 16 C-14 Component Latest Ref [facility] 05/20/2024 Total Protein 6.3 - 8.2 g/dL 7.1 Albumin, Serum 3.5 - 5.0 g/dL 4.6 Total Bilirubin 0.1 - 1.0 mg/dL <0.7 AST 8 - 43 U/L 32 Alkaline Phosphatase 38 - 128 U/L 56 ALT (SGPT) 0 - 34 U/L 19 Sodium 135 - 145 mEq/L 137 Potassium 3.5 - 5.1 mEq/L 4.3 Chloride 98 - 107 mEq/L 103 CO2 22 - 29 mmol/L 27 BUN 5 - 25 mg/dL 13 Creatinine 0.40 - 1.20 mg/dL 0.77 Glucose 70 - 100 mg/dL 108 (H) Calcium, Total,S 8.4 - 10.2 mg/dL 9.3 Anion Gap 4 - 13 7 Fasting? Yes 05/20/2024 Estimated Glomerular Filtration Rate (eGFR) >60 Vitals: BP Readings from Last 2 Encounters: 03/08/24 (!) 164/88 02/23/24 136/67 documented in this encounter Plan of Treatment Upcoming Encounters Date Type Department Care Team (Late st Contact Info) Description 09/29/2024 3:30 PM CDT Office Visit Internal Medicine [address] [place] [address] [phone] Chayo Espinal MD [address] [place] [phone] documented as of this encounter Visit Diagnoses Diagnosis Inflammatory polyarthropathy (HCC) Unspecified inflammatory polyarthropathy Insomnia, unspecified type documented in this encounter Care Teams Mail Carrier And Clerk Relationship Specialty Start Date End Date Chayo Espinal MD 210 [place] [address] PCP - General Internal Medicine 09/12/19 documented as of this encounter
--- OUTSIDE RECORDS SUMMARY | 2024-09-04 12:51 | XMS_ITS | Encounter Summary ---
Author Organization [facility] er Address [address] [place] [address] Care Team Providers Care Ict Development Manager Name Role Phone Chayo Espinal MD Primary Care Provider [phone] Reason for Visit * Reason Comments Med Refill Encounter Details Date Type Department Care Team (Late st Contact Info) Description 04/27/2022 Refill [facility] Internal Medicine [address] [place] [address] Chayo Espinal MD 210 [place] [address] Insomnia, unspecified type Social History [...] afraid of your partner or ex-partner? No 06/08/2020 Within the last year, have y ou been humiliated or emotionally abused in other ways by your partner or ex-partner? No Within the last year, have y ou been kicked, hit, slapped, or otherwise physically hurt by your partner or ex-partner? No 06/08/2020 Within the last year, have y ou been raped or forced to have any kind of sexual activity by your partner or ex-partner? No 06/08/2020 Social Connection and Isolat ion Panel [NHANES] Answer Date Recorded In a typical week, how many times do you talk on the phone with family, friends, or neighbors? More than three times a week 06/08/2020 How often do you get togethe r with friends or relatives? Once a week 06/08/2020 How often do you attend chur ch or tenriism services? Never 06/08/2020 Do you belong to any clubs o r organizations such as confucianist groups, unions, fraternal or athletic groups, or school groups? No 06/08/2020 How often do you attend meet ings of the clubs or organizations you belong to? Never 06/08/2020 Are you , , di vorced, , never , or living with a partner? 06/08/2020 AUDIT-C Answer Date Recorded Q1: How often do you have a drink containing alc ohol? Never 06/08/2020 Average Number of Drinks Not on file 021 Frequency of Binge Drinking Not on file 12/2020 Overall Financial Resource Strain (CARDIA) Answe r Date Recorded How hard is it for you to pa y for the very basics like food, housing, medical care, and heating? Not hard at all 06/08/2020 PHQ-2 Answer Date Recorded PHQ-9 Total Score 0 05/10/2021 [facility] of Occupat ional Health - Occupational Stress Questionnaire Answer Date Recorded Do you feel stress - tense, restless, nervous, or anxious, or unable to sleep at night because your mind is troubled all the time - these days? Very much 06/08/2020 Exercise Vital Sign Answer Date Recorde d On average, how many days pe r week do you engage in moderate to strenuous exercise (like a brisk walk)? 0 days 06/08/2020 On average, how many minutes do you engage in exercise at this level? 0 min 06/08/2020 Hunger Vital Sign Answer Date Recorded Within the past 12 months, y ou worried that your food would run out before you got the money to buy more. Never true 06/08/19 21 Within the past 12 months, t he food you bought just didn't last and you didn't have money to get more. Never true 06/08/2020 PRAPARE - Transportation Answer Date Re corded In the past 12 months, has l ack of transportation kept you from medical appointments or from getting medications? No 12/2020 In the past 12 months, has l ack of transportation kept you from meetings, work, or from getting things needed for daily living? No 06/08/2020 Education Answer Date Recorded What is the highest level of school you have completed or the highest degree you have received? Bachelor's degree (e.g., BA, AB, BS) 08/12/2019 Comments Unknown Sex and Gender Information Value Date Recorded Sex Assigned at Female 04/29/2022 4:47 PM MUSIC MINISTER Legal Sex Female 7:50 PM CDT Gender Identity Female 04/29/2022 4:47 PM MUSIC MINISTER Sexual Orientation Straight 04/29/2022 4: 47 PM MUSIC MINISTER documented as of this encounter Miscellaneous Notes * Telephone Encounter - Arely Melchor MA - 04/29/2022 2:05 PM CST Upcoming appointment with provider: None, Patient instructed to return in 6 months (11/08/2021) Last visit in provider department: 05/10/2021 Last visit requested medication was discussed: 05/10/2021 Last Rx: 11/19/2021- 15 with no refills Requested Prescriptions Pending Prescriptions Disp Refills ??? zolpidem (AMBIEN) 5 MG tablet [Pharmacy Med Name: Zolpidem Tartrate Oral Tablet 5 MG] 15 tablet0 Sig: TAKE ONE TABLET BY MOUTH ONCE DAILY AT NIGHT NEEDED FOR SLEEP Vitals: BP Readings from Last 2 Encounters: 03/20/22 118/66 07/31/21 128/81 C MINISTER documented in this encounter Plan of Treatment Upcoming Encounters Date Type Department Care Team (Late st Contact Info) Description 09/29/2024 3:30 PM CDT Office Visit [facility] Internal Medicine [address] [place] [address] Chayo Espinal MD 210 [facility] [place] [address] documented as of this encounter Visit Diagnoses Diagnosis Insomnia, unspecified type documented in this encounter Care Teams Ict Development Manager Relationship Specialty Start Date End Date Chayo Espinal MD [address] [place] [phone] PCP - General Internal Medicine 09/12/19 documented as of this encounter
--- OUTSIDE RECORDS SUMMARY | 2024-09-04 12:51 | XMS_ITS | Encounter Summary ---
Author Organization [facility] er Address [address] [place] [address] Care Team Providers Care Tank Systems Maintainer Name Role Phone Chayo Espinal MD Primary Care Provider [phone] Reason for Visit * Reason Comments Med Refill Encounter Details Date Type Department Care Team (Late st Contact Info) Description 02/15/2021 Refill [facility] Internal Medicine [address] [place] [address] Chayo Espinal MD 210 [place] [address] NSAID long-term use Social History Tobacco Use Types Packs/Day Years [...] often do you attend chur ch or buddhist services? Never 06/08/2020 Do you belong to any clubs o r organizations such as alevism groups, unions, fraternal or athletic groups, or [...] PHQ-2 Answer Date Recorded PHQ-9 Total Score 16 11/08/2020 [facility] of Occupat ional Health - Occupational Stress [...] Sex Assigned at Female 04/29/2022 4:47 PM MEDICAL TECHNICIANS Legal Sex Female 7:50 PM CDT Gender Identity Female 04/29/2022 4:47 PM MEDICAL TECHNICIANS Sexual Orientation Straight 04/29/2022 4: 47 PM MEDICAL TECHNICIANS documented as of this encounter Miscellaneous Notes * Telephone Encounter - Lupe Cardenas LPN - 02/15/2021 2:19 PM CDT Last visit in provider department: 02/05/2021 Last visit requested medication was discussed: 06/08/2020 Upcoming appointment with provider: 05/10/2021 Last Rx: #90, 3 refills 09/22/2019 Requested Prescriptions Pending Prescriptions Disp Refills ??? omeprazole (PriLOSEC) [address] capsule [Pharmacy Med Name: Omeprazole Oral Capsule Delayed Release 20 MG] 90 capsule 0 Sig: TAKE 1 CAPSULE BY MOUTH ONE TIME DAILY documented in this encounter Plan of Treatment Upcoming Encounters Date Type Department Care Team (Late st Contact Info) Description 09/29/2024 3:30 PM CDT Office Visit [facility] Internal Medicine 210 [place] [address] Chayo Espinal MD 210 [place] [phone] documented as of this encounter Visit Diagnoses Diagnosis NSAID long-term use Encounter for long-term (current) use of non-steroidal anti-inflammatories documented in this encounter Additional Health Concerns Infection Onset Date Last Indicated Resolved Time COVID-19 Rule Out 06/11/2021 06/11/2021 06/11/2021 11:35 PM MEDICAL TECHNICIANS COVID-19 Rule Out 03/05/2022 03/05/2022 03/05/2022 5:10 PM CDT documented as of this encounter Care Teams Tank Systems Maintainer Relationship Specialty Start Date End Date Chayo Espinal MD [address] [place] [phone] PCP - General Internal Medicine 09/12/19 documented as of this encounter
--- OUTSIDE RECORDS SUMMARY | 2024-09-04 12:51 | XMS_ITS | Encounter Summary ---
Author Organization [facility] er Address [address] [place] [address] Care Team Providers Care Director Correctional Agency Name Role Phone Chayo Espinal MD Primary Care Provider [phone] Encounter Details Date Type Department Care Team (Late st Contact Info) Description 11/09/2020 Orders Only SE Internal Medicine [address] [place] [address] Chayo Espinal MD [address] [place] [address] Abnormal TSH (Primary Dx) Social History Tobacco Use Types Packs/Day Years [...] often do you attend chur ch or jewish services? Never 06/08/2020 Do you belong to any clubs o r organizations such as jewish groups, unions, fraternal or athletic groups, or [...] Average Number of Drinks Not on file Frequency of Binge Drinking Not on file 12/2020 Overall Financial Resource Strain (CARDIA) Answe r Date Recorded How hard is it for you to pa y for the very basics like food, housing, medical care, and heating? Not hard at all 06/08/2020 PHQ-2 Answer Date Recorded PHQ-9 Total Score 16 11/08/2020 [facility] of Occupat ional Health - Occupational Stress [...] Sex Assigned at Female 04/29/2022 4:47 PM WEATHER OBSERVER Legal Sex Female 7:50 PM CDT Gender Identity Female 04/29/2022 4:47 PM WEATHER OBSERVER Sexual Orientation Straight 04/29/2022 4: 47 PM WEATHER OBSERVER documented as of this encounter Plan of Treatment Upcoming Encounters Date Type Department Care Team (Late st Contact Info) Description 09/29/2024 3:30 PM CDT Office Visit Internal Medicine [address] [place] [phone] Chayo Espinal MD [address] [place] [phone] documented as of this encounter Results * T3 (11/20/2020 4:19 PM CDT) T3, Total 1.29 0.97 - 1.69 ng/mL 11/20/2020 7:29 PM CDT [facility] Comment: The results from this or any other diagnostic test should be used and interpreted only in the context of the overall clinical picture. Heterophilic antibodies in serum or plasma samples may cause interference in immunoassays. Exposure to animal antigens, either in the environment or as part of treatment or imaging procedures, may have circulating anti-animal antibodies present. These antibodies may interfere with the assay reagents to produce unreliable results. Results which are inconsistent with clinical observations indicate the need for additional testing. Blood (Blood, Venous) 11/20/2020 4:19 PM CDT 11/20/2020 6:17 PM CDT Chayo Espinal MD LAB BLOOD ORDERABLES Final Result [facility] [address] [place] [address] * Thyroperoxidase (TPO) Ab (11/20/2020 4:19 PM CDT) Thyroid Peroxidase (TPO) Ab <0.3 <9.0 IU/mL 11/21/2020 3:26 PM CDT [facility] Comment: Test Performed by: [facility] - [address] [address] [employer]idential [employer] Sales Consultant: Jorge Quiroz M.D. Ph.D.; CLIA# [id number] Blood 11/20/2020 4:19 PM CDT 11/20/2020 5:04 PM CDT us Chayo Espinal MD LAB BLOOD ORDERABLES Final Result Performing Organization Address [facility] Co de Phone Number [address] [address], documented in this encounter Visit Diagnoses Diagnosis Abnormal TSH- Primary documented in this encounter Additional Health Concerns Infection Onset Date Last Indicated Resolved Time COVID-19 Rule Out 06/11/2021 06/11/2021 06/11/2021 11:35 PM WEATHER OBSERVER COVID-19 Rule Out 03/05/2022 03/05/2022 03/05/2022 5:10 PM CDT documented as of this encounter Care Teams Director Correctional Agency Relationship Specialty Start Date End Date Chayo Espinal MD [address] [place] [phone] PCP - General Internal Medicine 09/12/19 documented as of this encounter
--- OUTSIDE RECORDS SUMMARY | 2024-09-04 12:51 | XMS_ITS | Encounter Summary ---
Author Organization [facility] er Address [address] [place] [address] Care Team Providers Care Educational Resource Center Teacher Name Role Phone Chayo Espinal MD Primary Care Provider [phone] Reason for Visit * Reason Onset Date Comments Med Refill 06/19/2020 Med Refill 06/26/2020 Encounter Details Date Type Department Care Team (Late st Contact Info) Description 06/19/2020 Refill [facility] Internal Medicine [address] [place] [address] Chayo Espinal MD 210 [place] [phone] Social History Tobacco Use Types Packs/Day Years [...] often do you attend chur ch or gnosticism services? Never 06/08/2020 Do you belong to any clubs o r organizations such as hindu groups, unions, fraternal or athletic groups, or [...] at all 06/08/2020 PHQ-2 Answer Date Recorded PHQ-2 Score 17 06/08/2020 [facility] Occupat ional Health - Occupational [...] Sex Assigned at Female 04/29/2022 4:47 PM RECOVERY OPERATOR HELPER Legal Sex Female 7:50 PM CDT Gender Identity Female 04/29/2022 4:47 PM RECOVERY OPERATOR HELPER Sexual Orientation Straight 04/29/2022 4: 47 PM RECOVERY OPERATOR HELPER documented as of this encounter Plan of Treatment Upcoming Encounters Date Type Department Care Team (Late st Contact Info) Description 09/29/2024 3:30 PM CDT Office Visit [facility] Internal Medicine [address] [place] [phone] Chayo Espinal MD 210 [place] [phone] documented as of this encounter Visit Diagnoses Not on filedocumented in this encounter Additional Health Concerns Infection Onset Date Last Indicated Resolved Time COVID-19 Rule Out 06/11/2021 06/11/2021 06/11/2021 11:35 PM RECOVERY OPERATOR HELPER COVID-19 Rule Out 03/05/2022 03/05/2022 03/05/2022 5:10 PM CDT documented as of this encounter Care Teams Educational Resource Center Teacher Relationship Specialty Start Date End Date Chayo Espinal MD [address] [place] [phone] PCP - General Internal Medicine 09/12/19 documented as of this encounter
--- OUTSIDE RECORDS SUMMARY | 2024-09-04 12:51 | XMS_ITS | Encounter Summary ---
Author Organization [facility] Address [address] [place] [address] Care Team Providers Care Dispatcher Maintenance Service Name Role Phone Elsewhere, Pcp Primary Care Provider Unavailabl e Reason for Visit * Outpatient (Routine) - Closed Specialty Diagnoses / Procedures Referred By Sheri t Referred To Contact General Surgery Diagnoses Cyst Pancreas Doyle Yen M.D. 200 [place] [address] Phone: tel: fax: [facility] Referral ID Status Reason Start Date Expiration Date Visits Re quested Visits Authorized [id number] Closed 05/23/2024 11/22/2025 1 1 Encounter Details Date Type Department Care Team (Latest Contact Info) Description 08/16/2024 2:30 PM CDT Comprehensive Visit Division of Hepatobiliary and Pancreas Surgery in [place], [place] [address] [place] [phone] Roland Scanlon M.D., M.S. [address] [place] [phone] Doyle Yen M.D. [address] [place] [phone] Pancreas Intraductal Papillary Mucinous Benign (Primary Dx); Cyst Pancreas Social History Tobacco Use Types Packs/Day Years Used Date Smoking Tobacco: Former Cigarettes Q uit: 06/01/2011 E-cigarettes Quit: 2019 Passive Smoke Exposure: Never Smokeless Tobacco: Never Comments:Quit several times over the years Alcohol Use Standard Drinks/Week Comments No 0 (1 standard drink = 0.6 oz pur e alcohol) [facility] Utilities Answer Date Recorded In the past [...] How often do you attend chur or samaritan services? Never 04/01/2021 Do you belong to any clubs o r organizations such as mu-ism groups, unions, fraternal or athletic groups, or [...] Answer Date Recorded PHQ-2 Score 6 05/30/2019 [facility] Occupat ional [facility] - Occupational Stress Questionnaire Answer Date [...] your living situation today? I have a [facility] place to live 05/16/2024 Education Answer Date Recorded What is the highest level of school you have completed or the highest degree you have received? Master's degree (e.g., MA, MS, Ivet, MEd, [employer]OM [employer], INDY) 04/05/2019 Comments No Sex and Gender Information Value Date Recorded Sex Assigned at Female 11/02/2017 11:58 PM CDT Legal Sex Female 3:26 PM ACCOUNT SUPPORT ASSOCIATE Gender Identity Female 11/02/2017 11:58 PM CDT Sexual Orientation Straight 11/02/2017 11 :58 PM CDT documented as of this encounter Consult Notes * Roland Scanlon M.D., M.S. - 08/16/2024 2:30 PM CDT SUBJECTIVE REFERRAL SOURCE Doyle Yen M.D., GI. REASON FOR CONSULT Branch duct IPMN, incidental. HISTORY OF PRESENT ILLNESS Ms. Baird is a 74-year-old female who was incidentally identified last year with a cystic lesion in the tail of the pancreas. She has underwent EUS evaluation which revealed an elevated amylase in the fluid, slightly elevated CEA. No mural nodules or other high-risk stigmata. She is completely asym ptomatic. Repeat imaging on MR reveals a stable 4-cm lobulated cystic lesion in the tail of the pancreas. She has no significant family history. 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 She would like to avoid resection which I think is very reasonable. I will be recommending repeat surveillance imaging with MRI in 6 months as well as re-evaluate surgical options. May be a potential candidate for minimally invasive resection by one of my colleagues. All questions answered. Roland Scanlon M.D., M.S. CT CT Job ID: [id number] documented in this encounter Plan of Treatment Upcoming Encounters Date Type Department Care Team (Latest Contact Info) Description 09/22/2024 12:30 PM CDT Ancillary Procedure Department of Ophthalmology in [place], [place] [address] [place] [address] 09/22/2024 1:00 PM CDT Ancillary Procedure Department of Ophthalmology in [place], [place] [address] [place] [address] Sylvie Parry M.D. [address] [place] [phone] 09/22/2024 1:15 PM CDT Ancillary Procedure Department of Ophthalmology in [place], [place] [address] [place] [address] Sylvie Parry M.D. [address] [place] [phone] 09/22/2024 2:45 PM CDT Comprehensive Visit Department of Ophthalmology in [place], [place] [address] [place] [address] Sylvie Parry M.D. [address] [place] [phone] documented as of this encounter Visit Diagnoses Diagnosis Pancreas Intraductal Papillary Mucinous Benign- Primary Cyst Pancreas documented in this encounter Additional Health Concerns Assessment Noted Time PHQ-9 Depression Total Score: 21 05/30/ 019 1:40 PM ACCOUNT SUPPORT ASSOCIATE documented as of this encounter Care Teams Dispatcher Maintenance Service Relationship Specialty Start Date End Date Elsewhere, Pcp PCP - General Family Medicine 11/21/20 documented as of this encounter
--- OUTSIDE RECORDS SUMMARY | 2024-09-04 12:51 | XMS_ITS | Encounter Summary ---
Author Organization [facility] er Address [address] [place] [address] Care Team Providers Care Salesforce Administrator Name Role Phone Chayo Espinal MD Primary Care Provider [phone] Reason for Referral * Consultation (Routine) - Authorized Specialty Diagnoses / Procedures Referred By Contac t Referred To Contact Virtual Care Diagnoses Controlled type 2 diabetes mellitus without complication, without long-term current use of insulin ([facility]) Chayo Espinal MD 210 [place] [address] Phone: tel: fax: [facility] [address] [place] [address] Phone: tel: fax: Referral ID Status Reason Start Date Expiration Date V isits Requested Visits Authorized [id number] Authorized 07/27/2024 07/27/2025 1 1 Scheduling Instructions Patient will be screened for eligibility and enrollment will be offered if patient meets inclusion criteria. Referral will be processed quarterly along with clinical informatics cohort. Patient may not qualify due to insurance cost. PLATING MACHINE OPERATOR Encounter Details Date Type Department Care Team (Late st Contact Info) Description 07/27/2024 Orders Only [facility] Family Medicine 4th Floor [address] [place] [address] Chayo Espinal MD 210 [place] [address] Controlled type 2 diabetes mellitus without complication, without long-term current use of insulin (HCC) Social History Tobacco Use Types Packs/Day Years [...] from your doctor or pharmacy? Never 06/17/2024 [facility] Utilities Answer Date Recorded In the past 12 months has e [employer], gas, oil, or water [employer] threatened to shut off services in your [...] week 06/17/2024 How often do you attend christianity or jehovah's witness serv ices? Never 06/17/2024 Do you belong to any clubs o r organizations such as christianity groups, unions, fraternal or athletic groups, or [...] Date Recorded PHQ-9 Total Score 19 06/17/2024 [facility] of Occupat ional Health - Occupational Stress [...] place to sleep or slept in a fci (including now)? No 06/10/2023 Housing Stability Vital Sign Answer Ed e Recorded In the last 12 months, was t here a time when you were not able to pay the mortgage or rent on time? No 06/17/2024 In the past 12 months, how m any times have you moved where you were living? 1 06/17/2024 At any time in the past 12 m [facility], were you homeless or living in a fci (including now)? No 06/17/2024 Education Answer Date Recorded What is the highest level of school you have completed or the highest degree you have received? Bachelor's degree (e.g., BA, AB, BS) 08/12/2019 Comments No Sex and Gender Information Value Date Recorded Sex Assigned at Female 04/29/2022 4:47 PM ZINC PLATING MACHINE OPERATOR Legal Sex Female 7:50 PM CDT Gender Identity Female 04/29/2022 4:47 PM ZINC PLATING MACHINE OPERATOR Sexual Orientation Straight 04/29/2022 4: 47 PM ZINC PLATING MACHINE OPERATOR documented as of this encounter Plan of Treatment Upcoming Encounters Date Type Department Care Team (Late st Contact Info) Description 09/29/2024 3:30 PM CDT Office Visit [facility] Internal Medicine [address] [place] [address] Chayo Espinal MD [address] [place] [phone] Scheduled Referrals Name Type Priority Associated Diagnoses Order Schedule Ambulatory Referral for Remote Monitoring Outpatient Referral Routine Controlled type 2 diabetes mellitus without complication, without long-term current use of insulin (HCC) Ordered: 07/27/2024 documented as of this encounter Visit Diagnoses Diagnosis Controlled type 2 diabetes mellitus without complication, without long-term current use of insulin (HCC) documented in this encounter Care Teams Salesforce Administrator Relationship Specialty Start Date End Date Chayo Espinal MD [address] [place] [phone] PCP - General Internal Medicine 09/12/19 documented as of this encounter
--- OUTSIDE RECORDS SUMMARY | 2024-09-04 12:51 | XMS_ITS | Encounter Summary ---
Author Organization [facility] er Address [address] [place] [address] Care Team Providers Care Caster Investment Casting Name Role Phone Chayo Espinal MD Primary Care Provider [phone] Reason for Visit * Reason Comments Med Refill Encounter Details Date Type Department Care Team (Late st Contact Info) Description 08/03/2024 Refill [facility] 4th Floor [address] [place] [address] Chayo Espinal MD 210 [place] [address] Mixed hyperlipidemia Social History Tobacco Use Types Packs/Day Years [...] from your doctor or pharmacy? Never 06/17/2024 [facility] Utilities Answer Date Recorded In the [...] week 06/17/2024 How often do you attend scientology or hindu serv ices? Never 06/17/2024 Do you belong to any clubs o r organizations such as scientology groups, unions, fraternal or athletic groups, or [...] Date Recorded PHQ-9 Total Score 19 06/17/2024 [facility] of Occupat ional Health - Occupational Stress [...] place to sleep or slept in a prison (including now)? No 06/10/2023 Housing Stability Vital Sign Answer Ed e Recorded In the last 12 months, was t here a time when you were not able to pay the mortgage or rent on time? No 06/17/2024 In the past 12 months, how m any times have you moved where you were living? 1 06/17/2024 At any time in the past 12 m [facility], were you homeless or living in a prison (including now)? No 06/17/2024 Education Answer Date Recorded What is the highest level of school you have completed or the highest degree you have received? Bachelor's degree (e.g., BA, AB, BS) 08/12/2019 Comments No Sex and Gender Information Value Date Recorded Sex Assigned at Female 04/29/2022 4:47 PM ACTIMIZE ARCHITECT Legal Sex Female 7:50 PM CDT Gender Identity Female 04/29/2022 4:47 PM ACTIMIZE ARCHITECT Sexual Orientation Straight 04/29/2022 4: 47 PM ACTIMIZE ARCHITECT documented as of this encounter Miscellaneous Notes * Telephone Encounter - Joe Trujillo 08/05/2024 9:21 AM CST Pt is schedule for 09/29 for 6 months follow up. Pt stated I don't really need to see her I have no reason. Im just running around like a crazy lady, but I will schedule and see from there. MIZE ARCHITECT * Telephone Encounter - Arely Melchor MA - 08/05/2024 7:58 AM CST Patient is due for an appointment (05/13/2024). PSR: Please contact patient to assist with scheduling. Upcoming appointment with provider: None, Patient instructed to return in 6 months (05/13/2024) Last visit in provider department: 02/09/2024- Pre-op Last visit requested medication was discussed: 11/12/2023 Last Rx: 07/22/2023- 90 with 3 refills Requested Prescriptions Pending Prescriptions Disp Refills pravastatin (PRAVACHOL) 20 MG tablet [Pharmacy Med Name: Pravastatin Sodium Oral Tablet 20 MG] 90 tablet 0 Sig: TAKE 1 TABLET BY MOUTH DAILY AT NIGHT Labs: Component Latest Ref Rng 05/20/2024 Cholesterol 0 - 199 mg/dL 185 Triglycerides 0 - 149 mg/dL 171 (H) HDL 40 - 250 mg/dL 46 LDL Calculated 0 - 99 mg/dL 105 (H) Legend: (H) High Vitals: BP Readings from Last 2 Encounters: 03/08/24 (!) 164/88 02/23/24 136/67 Last Controlled Substance Agreement (CSA): Last Random Urine Drug Screen (RUDS): MIZE ARCHITECT documented in this encounter Plan of Treatment Upcoming Encounters Date Type Department Care Team (Late st Contact Info) Description 09/29/2024 3:30 PM CDT Office Visit [facility] Internal Medicine [address] [place] [address] Chayo Espinal MD [address] [facility] [place] [address] documented as of this encounter Visit Diagnoses Diagnosis Mixed hyperlipidemia documented in this encounter Care Teams Caster Investment Casting Relationship Specialty Start Date End Date Chayo Espinal MD [address] [place] [phone] PCP - General Internal Medicine 09/12/19 documented as of this encounter
--- OUTSIDE RECORDS SUMMARY | 2024-09-04 12:51 | XMS_ITS | Encounter Summary ---
Author Organization [facility] er Address [address] [place] [address] Care Team Providers Care Die Designer Name Role Phone Chayo Espinal MD Primary Care Provider [phone] Reason for Visit * Reason Onset Date Comments Med Refill 04/29/2021 Encounter Details Date Type Department Care Team (Late st Contact Info) Description 04/29/2021 Refill [facility] 4th Floor [address] [place] [address] Chayo Espinal MD 210 [place] [address] Inflammatory polyarthropathy (HCC) Social History Tobacco Use Types Packs/Day [...] often do you attend chur ch or muslim services? Never 06/08/2020 Do you belong to any clubs o r organizations such as catholic groups, unions, fraternal or athletic groups, or [...] Date Recorded PHQ-9 Total Score 16 11/08/2020 [facility] Questionnaire Answer Date [...] Sex Assigned at Female 04/29/2022 4:47 PM WASTEWATER DESIGN ENGINEER Legal Sex Female 7:50 PM CDT Gender Identity Female 04/29/2022 4:47 PM WASTEWATER DESIGN ENGINEER Sexual Orientation Straight 04/29/2022 4: 47 PM WASTEWATER DESIGN ENGINEER documented as of this encounter Miscellaneous Notes * Telephone Encounter - Althea Ramirez LPN - 04/30/2021 2:19 PM CST Lft message per secured voice mail. RX is filled for 30 pills only per PCP this is a short durationmedication EWATER DESIGN ENGINEER * Telephone Encounter - Chayo Espinal MD - 04/30/2021 1:15 PM WASTEWATER DESIGN ENGINEER Rx sent for indomethacin only for 30 pills. At this should be only as needed a short duration EWATER DESIGN ENGINEER * Telephone Encounter - Althea Ramirez LPN - 04/30/2021 9:22 AM CST Newspaper Library Manager spoke to pt Omeprazole was filled by PCP on Jan pt should have medication left plusa refill Indomethacin is a year old. Also reported on 06/08/20 pt not taking. Per pt she is taking for triggerfinger pain. Please advise med is pending if approved. EWATER DESIGN ENGINEER * Telephone Encounter - Cheko Sanchez - 04/29/2021 4:42 PM CST Patient called and requested refills of her omeprazole 20mg and indomethacin 25mg at [facility]. EWATER DESIGN ENGINEER documented in this encounter Plan of Treatment Upcoming Encounters Date Type Department Care Team (Late st Contact Info) Description 09/29/2024 3:30 PM CDT Office Visit Internal Medicine [address] [place] [phone] Chayo Espinal MD [address] [place] [phone] documented as of this encounter Visit Diagnoses Diagnosis Inflammatory polyarthropathy (HCC) Unspecified inflammatory polyarthropathy documented in this encounter Additional Health Concerns Infection Onset Date Last Indicated Resolved Time COVID-19 Rule Out 06/11/2021 06/11/2021 06/11/2021 11:35 PM WASTEWATER DESIGN ENGINEER COVID-19 Rule Out 03/05/2022 03/05/2022 03/05/2022 5:10 PM CDT documented as of this encounter Care Teams Die Designer Relationship Specialty Start Date End Date Chayo Espinal MD [address] [place] [phone] PCP - General Internal Medicine 09/12/19 documented as of this encounter
--- OUTSIDE RECORDS SUMMARY | 2024-09-04 12:51 | XMS_ITS | Encounter Summary ---
Author Organization [facility] er Address [address] [place] [address] Care Team Providers Care Professor Of Latin American Studies Name Role Phone Chayo Espinal MD Primary Care Provider [phone] Reason for Visit * Reason Comments Med Refill Encounter Details Date Type Department Care Team (Late st Contact Info) Description 11/17/2021 Refill [facility] [address] [place] [address] Chayo Espinal MD [address] [place] [address] Inflammatory polyarthropathy (HCC); Insomnia, unspecified type Social History Tobacco Use Types Packs/Day Years Used Date Smoking Tobacco: Former Cigarettes 1 48 1 2012 Smokeless Tobacco: Never Alcohol Use Standard [...] often do you attend chur ch or yazidi services? Never 06/08/2020 Do you belong to any clubs o r organizations such as yazidism groups, unions, fraternal or athletic groups, or [...] Date Recorded PHQ-9 Total Score 0 05/10/2021 [facility] of [facility]at [facility] Health - Occupational Stress Questionnaire Answer Date [...] Sex Assigned at Female 04/29/2022 4:47 PM SEC ACCOUNTANT Legal Sex Female 7:50 PM CDT Gender Identity Female 04/29/2022 4:47 PM SEC ACCOUNTANT Sexual Orientation Straight 04/29/2022 4: 47 PM SEC ACCOUNTANT documented as of this encounter Miscellaneous Notes * Telephone Encounter - Xochilt Arnold MA - 11/19/2021 1:14 PM CDT Last visit in provider department: 05/10/2021 PHQ-9 0 11/08/2020 [id number] Last visit requested medication was discussed: 05/10/2021 Last Rx: Duloxetine 60mg #90 +3 refills 11/17/2020 Zolpidem 5mg #30 no refills 11/23/2020 Requested Prescriptions Pending Prescriptions Disp Refills ??? DULoxetine (CYMBALTA) [address] capsule [Pharmacy Med Name: DULoxetine HCl Oral Capsule Delayed Release Particles 60 MG] 90 capsule 0 Sig: TAKE 1 CAPSULE BY MOUTH 1 TIME DAILY ??? zolpidem (AMBIEN) 5 MG tablet [Pharmacy Med Name: Zolpidem Tartrate Oral Tablet 5 MG] 30 tablet0 Sig: Take 1 tablet by mouth at night if needed for sleep Vitals: BP Readings from Last 2 Encounters: 07/31/21 128/81 05/10/21 104/78 Upcoming appointment with provider: 12/10/2021 documented in this encounter Plan of Treatment Upcoming Encounters Date Type Department Care Team (Late st Contact Info) Description 09/29/2024 3:30 PM CDT Office Visit [facility] [address] [place] [phone] Chayo Espinal MD [address] [place] [phone] documented as of this encounter Visit Diagnoses Diagnosis Inflammatory polyarthropathy (HCC) Unspecified inflammatory polyarthropathy Insomnia, unspecified type documented in this encounter Additional Health Concerns Infection Onset Date Last Indicated Resolved Time COVID-19 Rule Out 03/05/2022 03/05/2022 03/05/2022 5:10 PM CDT documented as of this encounter Care Teams Professor Of Latin American Studies Relationship Specialty Start Date End Date Chayo Espinal MD [address] [place] [phone] PCP - General Internal Medicine 09/12/19 documented as of this encounter
--- OUTSIDE RECORDS SUMMARY | 2024-09-04 12:51 | XMS_ITS | Clinical Summary ---
Author Organization [facility] er Address [address] [place] [id number] Care Team Providers Care Television Cable Installer Name Role Phone Chayo Espinal MD Primary Care Provider [phone] Allergies No known active allergies Medications Calcium Carbonate-Vit D-Min (CALCIUM 600+D PLUS MINERALS) 600-400 MG-UNIT tablet Take 1 tablet by mouth 01/18/20 09 Active cinnamon 500 MG capsule Take 1 capsule (500 mg total) by mouth daily 12/14/19 09 Active Flaxseed, Linseed, (FLAX SEED OIL) 1000 MG capsule Take 1 capsule by mouth daily 03/07/20 08 Active Thomas, Zingiber officinalis, (THOMAS ROOT) 500 MG capsule Take 1 capsule by mouth daily 12/14/19 09 Active Melatonin tablet Take 4 tablets (20 mg total) by mouth every night 06/11/2023 pt reports 20mg pm 04/21/20 17 Active omega-3 (FISH OIL) 1000 MG capsule Take 1 capsule (1,000 mg total) by mouth 1 (one) time each day Active Garlic 1000 MG capsule Take 1 capsule by mouth Active MAGNESIUM MALATE PO Take 1 capsule by mouth Active Multiple Vitamins-Minerals (DAILY MULTIVITAMIN) capsule Take 1 tablet by mouth 1 (one) time Active Valerian 100 MG capsule Take 1 capsule by mouth 1 (one) time Active omeprazole (PriLOSEC) [address] capsuleIndications: NSAID long-term use TAKE 1 CAPSULE BY MOUTH ONE TIME DAILY 90 capsule 1 02/16/20 21 Active indomethacin (INDOCIN) 25 MG capsuleIndications: Inflammatory polyarthropathy (HCC) Take 1 capsule (25 mg total) by mouth 1 (one) time each day if needed for mild pain Take with food. 90 capsule 1 06/19/19 22 Active levothyroxine (SYNTHROID) 50 MCG tabletIndications:S ubclinical hypothyroidism TAKE ONE TABLET BY MOUTH ONCE DAILY EVERY MORNING 90 tablet 3 02/12/20 24 Active pravastatin (PRAVACHOL) 20 MG tabletIndications:M ixed hyperlipidemia TAKE 1 TABLET BY MOUTH DAILY AT NIGHT 90 tablet 08/06/19 25 Active DULoxetine (CYMBALTA) [address] capsuleIndications: Inflammatory polyarthropathy (HCC) TAKE ONE CAPSULE BY MOUTH ONE TIME DAILY 90 capsule 1 08/22/19 25 Active zolpidem (AMBIEN) 5 MG tabletIndications:I nsomnia, unspecified type TAKE ONE TABLET BY MOUTH AT BEDTIME NEEDED FOR SLEEP 30 tablet 08/22/19 25 Active celecoxib (CeleBREX) 100 MG capsuleIndications: Inflammatory polyarthropathy (HCC) TAKE ONE CAPSULE BY MOUTH TWICE DAILY WITH FOOD 120 capsule 08/22/19 25 Active DULoxetine (CYMBALTA) [address] capsuleIndications: Inflammatory polyarthropathy (HCC) TAKE 1 CAPSULE BY MOUTH 1 TIME DAILY 90 capsule 3 08/10/19 24 025 Discontinued zolpidem (AMBIEN) 5 MG tabletIndications:I nsomnia, unspecified type TAKE ONE TABLET BY MOUTH ONE TIME DAILY at night as needed for sleep 15 tablet 12/03/19 24 025 Discontinued celecoxib (CeleBREX) 100 MG capsuleIndications: Inflammatory polyarthropathy (HCC) TAKE 1 CAPSULE BY MOUTH 2 TIMES A DAY WITH FOOD 120 capsule 06/06/19 25 025 Discontinued Hospital, Clinic, or Other Facility Administered Medication Ordered Dose Route Frequency Start Date End Date Status lidocaine-EPINEPHrine (XYLOCAINE W/EPI) 1 %-1:301040 injection 2 mLIndications:Skin tag 2 mL INFILTRATION Once 07/31/2021 Active Active Problems Problem Noted Date Diagnosed Date Postmenopausal bleeding 12/02/2023 Overview (12/02/2023): 12/02/23 Episode of PMB, has since resolved. Uterine lining 1.8mm in thickness. US 11/27/23, impression as follows: 1. Hyperemic uterine cervix without discrete mass raising concern for endocervical polyp. Cannot completely exclude malignancy. Consider pelvic MRI for further evaluation. 2. Uterine leiomyoma. 3. Limited exam. Low suspicion for malignancy, recommended repeat pelvic exam, can consider EMB if another episode of bleeding. At this time and given episode has stopped, she desires no further follow-up. Will RTC with another episode of vaginal bleeding. Pancreatic mass 08/13/2023 Subclinical hypothyroidism 06/15/2023 Lesion of skin of foot 09/04/2022 Swelling of thigh 09/04/2022 Bony prominence 09/04/2022 History of skin cancer 07/31/2021 Overview (07/31/2021): Basal cell carcinoma, left axilla. Osteopenia of multiple sites 05/10/2021 Controlled type 2 diabetes m ellitus without complication, without long-term current use of insulin 06/10/2020 Obstructive sleep apnea (adult) (pediatric) 08/31 Overview (07/31/2020): 08/2019 Sleep Eval (Mulugeta Parker)- Mild obstructive sleep apnea (5-15 desaturations per hour). Advised that this does not pose a risk to her health. Arimo score of 0/24 Advised weight loss. No CPAP needed. Low immunoglobulin level 09/22/2019 NSAID long-term use 09/22/2019 Chronic low back pain without sciatica 0 Neck pain 08/15/2019 Trigger thumb, left thumb 05/20/2019 Thumb pain 05/05/2019 Osteoarthritis of knee 01/27/2018 Inflammatory polyarthropathy 02/03/2014 Overview (08/12/2019): Rheum Eval 01/2014 (Whitney Velazquez)- No definitive evidence of spondyloarthropathy given no evidence of sacroiliitis. With regard to the peripheral joints there is also no specific finding of synovitis that would suggest that this is definitely presentation of an inflammatory arthritis.Advised NSAIDS and follow-up. History of adenomatous polyp of colon 01/22/2011 Overview (11/08/2020): F Colonoscopy 09/2016- 5 polyps. Tubular adenoma and [...] time required to advance to the cecum. Hyperlipidemia 05/13/2007 Mixed anxiety depressive disorder 04/12/2007 Chronic pain syndrome 04/12/2007 Myositis 09/29/2006 Family history of colon cancer 01/21/2006 Resolved Problems Problem Noted Date Diagnosed Date Resolved Date History of adenomatous polyp of colon 01/22/2011 11/08/2020 Benign neoplasm of colon 01/06/200603/2021 Encounters Date Type Department Care Team Description 08/17/2024 Refill Internal Medicine [address] [place] [address] Chayo Espinal MD Inflammatory polyarthropathy (HCC); Insomnia, unspecified type 08/03/2024 Refill Family Medicine 4th Floor [address] [place] [address] Chayo Espinal MD Mixed hyperlipidemia 07/27/2024 Orders Only Family Medicine 4th Floor [address] [place] [phone] Chayo Espinal MD Controlled type 2 diabetes mellitus without complication, without long-term current use of insulin (HCC) from Last 3 Months Immunizations Name Administration Dates Next Due COVID-19, mRNA, LNP-S, bival ent booster, PF, 50mcg/0.5mL or 25mcg/0.25mL dose (Moderna) 04/11/2022 COVID-19, mRNA, LNP-s, PF, ita-succrose, 30mcg/0.3mL, COMIRNATY Ages 12+ 02/09/2024(Deferred: Other - to be administered later) COVId-19, mRNA, LNP-s, PF, 5 0mcg/0.5mL Ages 12+ (Moderna Spikevax) 03/10/2024,03/03/2023 Flu Vaccine High Dose 65yrs and Older IM 02/23/2023,04/04/2022,03/08/2018,03/01,04/10/2016,03/11/2016,02/26/2015 ,02/28/2014,04/01/2013 INFLUENZA QUADRIVALENT MDV (IM) 03/01/2021 Influenza 6mo-64yrs Quad Pre servative Free IM 03/10/2019,02/21/2017 Influenza Split 02/26/2015, 4,04/01/2013,03/02,03/17/2011,03/20/2010,03/24/2007 Influenza, High-Dose, Trival ent, PF, 65 yrs and Older 02/09/2024 Influenza, Trivalent, PF 03/20/2010,02/22/2009 Influenza, Unspecified 03/01/2017,2015,04/01/2013(Defer red: Other),03/02/2012,03/17/2011, 7 Pneumococcal Conjugate 13-Valent 10/31/2016 Pneumococcal Polysaccharide 01/27/2018(Deferred: Other),10/29/2002 Td 11/06/2011(Deferred: Other),10/31 Td, Unspecified 11/18/2006 Tdap 11/19/2011,11/23/2006 Zoster 07/01/2013,04/25/2013(Deferred: Other) Family History Medical History Relation Comments Cancer Father Diabetes Mother Hypertension Mother Relation Status Comments Father Mother Social History Tobacco Use Types Packs/Day Years Used Date Smoking Tobacco: Former Cigarettes 1 48 1 972 - 2012 Passive Smoke Exposure: Never Smokeless Tobacco: Never Tobacco Cessation:Counseling Given: Not Answered Alcohol Use Standard Drinks/Week Comments Never 0 (1 standard drink = 0.6 oz pur e alcohol) B1300 Health Literacy Answer Date Recor ded How often do you need to hav e someone help you when you read instructions, pamphlets, or other written material from your doctor or pharmacy? Never 06/17/2024 [facility] Utilities Answer Date Recorded In the past 12 months has e [employer], gas, oil, or water [employer] threatened to shut off services in your [...] week 06/17/2024 How often do you attend hoahaoism or baptist serv ices? Never 06/17/2024 Do you belong to any clubs o r organizations such as hoahaoism groups, unions, fraternal or athletic groups, or [...] Date Recorded PHQ-9 Total Score 19 06/17/2024 [facility] of Occupat ional Health - Occupational Stress [...] place to sleep or slept in a [place] facility (including now)? No 06/10/2023 Housing Stability Vital Sign Answer Ed e Recorded In the last 12 months, was t here a time when you were not able to pay the mortgage or rent on time? No 06/17/2024 In the past 12 months, how m any times have you moved where you were living? 1 06/17/2024 At any time in the past 12 m [facility], were you homeless or living in a [place] facility (including now)? No 06/17/2024 Education Answer Date Recorded What is the highest level of school you have completed or the highest degree you have received? Bachelor's degree (e.g., BA, AB, BS) 08/12/2019 Comments No Sex and Gender Information Value Date Recorded Sex Assigned at Female 04/29/2022 4:47 PM TEACHER ASST Legal Sex Female 7:50 PM CDT Gender Identity Female 04/29/2022 4:47 PM TEACHER ASST Sexual Orientation Straight 04/29/2022 4: 47 PM TEACHER ASST Last Filed Vital Signs Vital Sign Reading Time Taken Comments Blood Pressure 164/88 03/08/2024 2:45 PM CDT Pulse 75 03/08/2024 2:45 PM CDT Temperature 36.6 C (97.9 F) 03/08/2024 2:45 PM CDT Respiratory Rate 12 03/08/2024 2:45 PM CDT Oxygen Saturation 94% 03/08/2024 2:45 PM CDT Inhaled Oxygen Concentration - - Weight 93.9 kg (207 lb 0.2 oz) 03/08/2024 12:36 PM CDT Height 170 cm (5' 6.93) 02/09/2024 2:43 PM CDT Body Mass Index 32.49 02/09/2024 2:43 PM CDT Plan of Treatment Upcoming Encounters Date Type Department Care Team (Late st Contact Info) Description 09/29/2024 3:30 PM CDT Office Visit [facility] Internal Medicine [address] [place] [address] Chayo Espinal MD 210 [place] [address] Health Maintenance Due Date Last Done Comments CT Colonography 1950 FIT-DNA 1950 Sigmoidoscopy 1950 iFOBT 1950 Zoster Vaccines (2 of 3) 08/26/2013 07/01/2013 Pneumococcal Vaccine: 50+ Years (3 of 3 - PCV20 or PCV21) 10/31/2021 10/31/2016, 10/29/2002 DTaP,Tdap,and Td Vaccines (3 - Td or Tdap) 11/18/2021 11/19/2011, 11/23/2006, 11/18/2006, Additional history exists Bone Density Scan 11/15/2023 11/14/2020, 11/18/2016 Diabetes: Urine Protein Screening 06/04/2024 06/04/2023, 12/06/2021, 11/09/2020 Diabetes: Foot Exam 06/11/2024 06/11/2023, 11/08/2020, 11/08/2020 Medicare Annual Wellness Visit (AWV) 06/11/2024 06/11/2023 Mammogram 11/08/2024 11/09/2023, 10/30, 11/05/2022, Additional history exists Diabetes: Hemoglobin A1C 11/18/2024 024, 06/04/2023, 06/04/2023, Additional history exists Lipid Panel 05/20/2025 05/20/2024, 08/2023, 05/06/2022, Additional history exists Fall Risk Performed 06/17/2025 06/17/2024 Colonoscopy 09/17/2025 09/17/2020, 10/03/2016 Colorectal Cancer Screening 09/17/2025 Diabetes: Retinopathy Screening 03/28/2026 03/28/2024, 03/28/2024, 03/28/2024, Additional history exists Influenza Vaccine Completed 02/09/2024, , 04/04/2022, Additional history exists COVID-19 Vaccine Completed 03/10/2024, 07/2022, 04/11/2022, Additional history exists HPV Vaccines Aged Out No longer eligi ble based on patient's age to complete this topic Medical Devices Implanted Type Area Grinder Set Up Operator Internal Device Identifier Shelf Expiration Date Model / Serial / Lot 1-Piece Iol With Tecnis - [id number] - [id number] - [id number] Implanted:Qty: 1 on 03/08/2024 by Jayne Strong MD at [facility] Lens Left: Eye 06/15/2025 [id number] / [id number] / NA 1-Piece Iol With Tecnis - [id number] - [id number] - [id number] Implanted:Qty: 1 on 02/23/2024 by Jayne Strong MD at [facility] Right: Eye 03/16/2026 [id number] / [id number] / NA Procedures Procedure Name Priority Date/Time Associated Diagnosis Comments HEMOGLOBIN A1C Routine 05/20/2024 1:33 PM TEACHER ASST Controlled type 2 diabetes mellitus without complication, without long-term current use of insulin (HCC) LIPID PANEL Routine 05/20/2024 1:33 PM TEACHER ASST Controlled type 2 diabetes mellitus without complication, without long-term current use of insulin (HCC) MICROALBUMIN/CREATI NINE RATIO Routine 06/04/2023 11:23 AM TEACHER ASST Controlled type 2 diabetes mellitus without complication, without long-term current use of insulin (HCC) DEXA BONE DENSITY Routine 11/14/2020 2:3 8 PM CDT Screening for osteoporosis from Last 3 Months or Most Recently Relevant to Health Maintenance Results * (ABNORMAL) Hemoglobin A1c (05/20/2024 1:33 PM TEACHER ASST) Hemoglobin A1C 6.4(H) 4.0 - 5.6 % A1C 05/20/2024 8:38 PM TEACHER ASST [facility] Comment: Reference Range 4.0-5.6% is for non- adults >=18 yrs <5.6% Non-Diabetic 5.7-6.4% Increased risk of Diabetes >=6.5% Indicative of Diabetes <7.0% ADA goal for glycemic control Methodology may not detect all hemoglobin variants which can affect A1c results. Method certified by National Glycohemoglobin Standardization Program. Blood (Blood, Venous) 05/20/2024 1:33 PM TEACHER ASST 05/20/2024 4:29 PM TEACHER ASST Chayo Espinal MD LAB BLOOD ORDERABLES Final Result [facility] [address] [place] [address] * (ABNORMAL) Lipid panel (05/20/2024 1:33 PM TEACHER ASST) Cholesterol 185 0 - 199 mg/dL 05/20/2024 7:45 PM TEACHER ASST [facility] Comment: Recommended by National Cholesterol Education Program (ATP III) -------- Cholesterol Ranges -------- <200 Desirable 200-239 Borderline high >=240 High Triglycerides 171(H) 0 - 149 mg/dL 05/20/2024 7:45 PM [facility] Comment: -------- TRIG Ranges -------- <150 Normal 150-199 Borderline high 200-499 High >=500 Very high HDL 46 40 - 250 mg/dL 05/20/2024 7:45 PM [facility] Comment: -------- HDL Ranges -------- <40 Low 40-59 Normal >=60 Optimal LDL Calculated 105(H) 0 - 99 mg/dL 05/20/2024 7:45 PM [facility] Comment: -------- LDL Ranges -------- <100 Optimal 100-129 Near optimal/above optimal 130-159 Borderline high 160-189 High >=190 Very high Blood 05/20/2024 1:33 PM TEACHER ASST 05/20/2024 4:23 PM TEACHER ASST us Chayo Espinal MD LAB BLOOD ORDERABLES Final Result Performing Organization Address [facility] de Phone Number [facility] [address] [place], [place] [id number] * (ABNORMAL) Microalbumin/Creatinine Ratio (06/04/2023 11:23 AM TEACHER ASST) Microalbumin,mg/ day 20.1(H) 0.0 - 16.6 mg/L 06/04/2023 3:09 PM [facility] Creatinine, Urine 98 mg/dL 06/04/2023 3:09 PM [facility] Comment: No established reference range. Microalb/Creat Ratio 21 0 - 24 mg/g 06/04/2023 3:09 PM [facility] Urine 06/04/2023 11:2 3 AM TEACHER ASST 06/04/2023 12:24 PM TEACHER ASST us Chayo Espinal MD LAB URINE ORDERABLES Final Result Performing Organization Address [facility] de Phone Number [facility] [address] [place] [phone] * Dexa bone density axial skeleton (11/14/2020 2:38 PM CDT) Anatomical Region Laterality Modality Wrist, Hip, L-spine Radiographic Imaging 11/14/2020 2:38 PM CDT Impressions 11/14/2020 3:17 PM CDT IMPRESSION: Osteopenia. FINDINGS: Patient: KIMBERLEE BAIRD Birthdate: 1950, 69.4 Height/Weight: 66.0 in., 212.0 lbs. Gender/Ethnicity: Female, White Facility ID: (not specified) Referring Physician: Chayo Espinal MD Measured: 11/14/2020, 2:24:54 PM, 13.60 Analyzed: 11/14/2020, 2:38:14 PM, 13.60 Results: Region Measured Age BMD T-score Z-score Neck Left 11/14/2020 69.4 0.854 g/cm2 -1.3 -0.3 Neck Right 11/14/2020 69.4 0.836 g/cm2 -1.5 -0.5 Total Left 11/14/2020 69.4 1.011 g/cm2 0.0 0.7 Total Right 11/14/2020 69.4 0.911 g/cm2 -0.8 -0.1 ASSESSMENT: The diagnosis in pre-menopausal women and men can be based on low bone mass or evidence of skeletal fragility in the appropriate clinical setting. World Health Organization - Definition of osteoporosis and Osteopenia for Women* Normal: T-Score at or above -1 SD Osteopenia: T-Score between -1 and -2.5 SD Osteoporosis: T-Score at or below -2.5 SD Established Osteoporosis: T-Score at or below -2.5 SD plus fragility fracture *WHO definitions only apply when a young healthy Women reference database is used to determine T- Scores. Narrative 11/14/2020 3:17 PM CDT INDICATION: Post menopause (age-related, natural) Procedure Note Myrtle Sen MD - 11/14/2020 INDICATION: Post menopause (age-related, natural) IMPRESSION: Osteopenia. FINDINGS: Patient: KIMBERLEE BAIRD Birthdate: 1950, 69.4 Height/Weight: 66.0 in., 212.0 lbs. Gender/Ethnicity: Female, White Facility ID: (not specified) Referring Physician: Chayo Espinal MD Measured: 11/14/2020, 2:24:54 PM, 13.60 Analyzed: 11/14/2020, 2:38:14 PM, 13.60 Results: Region Measured Age BMD T-score Z-score Neck Left 11/14/2020 69.4 0.854 g/cm2 -1.3 -0.3 Neck Right 11/14/2020 69.4 0.836 g/cm2 -1.5 -0.5 Total Left 11/14/2020 69.4 1.011 g/cm2 0.0 0.7 Total Right 11/14/2020 69.4 0.911 g/cm2 -0.8 -0.1 ASSESSMENT: The diagnosis in pre-menopausal women and men can be based on low bone mass or evidence of skeletal fragility in the appropriate clinicalsetting. World Health Organization - Definition of osteoporosis and Osteopenia for Women* Normal: T-Score at or above -1 SD Osteopenia: T-Score between -1 and -2.5 SD Osteoporosis: T-Score at or below -2.5 SD Established Osteoporosis: T-Score at or below -2.5 SD plus fragility fracture *WHO definitions only apply when a young healthy Women reference database is used to determine T- Scores. Chayo Espinal MD IM DXA PROCEDURES Final Re sult from Last 3 Months or Most Recently Relevant to Health Maintenance Insurance #[address] [place] [address] MEDICARE [facility] SUPPLEMENTAL Advance Directives For more information, please contact: [phone] * Full Code (Latest Code Status on File) Date Activated Date Inactivated Comments 03/08/2024 2:37 PM 03/08/2024 5:07 PM * Full Code Date Activated Date Inactivated Comments 02/23/2024 1:11 PM 02/23/2024 3:34 PM Care Teams Television Cable Installer Relationship Specialty Start Date End Date Chayo Espinal MD [address] [place] [phone] PCP - General Internal Medicine 09/12/19
--- OUTSIDE RECORDS SUMMARY | 2024-09-04 12:51 | XMS_ITS | Encounter Summary ---
Author Organization [facility] Address [address] [address] Care Team Providers Care Loss Prevention Agent Name Role Phone Elsewhere, Pcp Primary Care Provider Unavailabl e Reason for Referral * Outpatient (Routine) - Authorized Specialty Diagnoses / Procedures Referred By Contdavid t Referred To Contact Ophthalmology Diagnoses Blurred Vision Chayo Espinal M.D. [address] [place] [address] Phone: tel: fax: [facility] Referral ID Status Reason Start Date Expiration Date V isits Requested Visits Authorized [id number] Authorized 07/21/2024 01/20/2026 1 1 ROLLER Encounter Details Date Type Department Care Team (Late st Contact Info) Description 07/21/2024 [facility] [address] [place] [phone] Chayo Espinal M.D. [address] [address] Blurred Vision (Primary Dx) Social History Tobacco Use Types Packs/Day Years Used Date Smoking Tobacco: Former Cigarettes Q uit: 06/01/2011 E-cigarettes Quit: 2019 Passive Smoke Exposure: Never Smokeless Tobacco: Never Comments:Quit several times over the years Alcohol Use Standard Drinks/Week Comments No 0 (1 standard drink = 0.6 oz pur e alcohol) [facility] Utilities Answer Date Recorded [...] often do you attend chur ch or judaism services? Never 04/01/2021 Do you belong to any clubs o r organizations such as judaism groups, unions, fraternal or athletic groups, or [...] Answer Date Recorded PHQ-2 Score 6 05/30/2019 [facility] of Occupat ional Health - Occupational [...] Date Recorded Dental: Regular Dentist Yes 06/05/19 23 Employment Answer Date Recorded Employment status Retired 05/16/2024 Housing Stability Answer Date Recorded What is your living situation today? I have a [facility] place to live 05/16/2024 Education Answer Date Recorded What is the highest level of school you have completed or the highest degree you have received? Master's degree (e.g., MA, MS, Ivet, MEd, PRODUCT COMMUNICATIONS MANAGER, [employer]) 04/05/2019 Comments No Sex and Gender Information Value Date Recorded Sex Assigned at Female 11/02/2017 11:58 PM CDT Legal Sex Female 3:26 PM STEM ROLLER Gender Identity Female 11/02/2017 11:58 PM CDT Sexual Orientation Straight 11/02/2017 11 :58 PM CDT documented as of this encounter Plan of Treatment Upcoming Encounters Date Type Department Care Team (Latest Contact Info) Description 09/22/2024 12:30 PM CDT Ancillary Procedure Department of Ophthalmology in [place], [place] [address] [place] [phone] 09/22/2024 1:00 PM CDT Ancillary Procedure Department of Ophthalmology in [place], [place] [address] [place] [phone] Sylvie Parry M.D. [address] [place] [phone] 09/22/2024 1:15 PM CDT Ancillary Procedure Department of Ophthalmology in [place], [place] [address] [place] [phone] Sylvie Parry M.D. [address] [place] [phone] 09/22/2024 2:45 PM CDT Comprehensive Visit Department of Ophthalmology in [place], [place] [address] [place] [phone] Sylvie Parry M.D. [address] [place] [phone] Scheduled Referrals Name Type Priority Associated Diagnoses Order Schedule Ophthalmology Referral Outpatient Referral Routine Blurred Vision Expected: 07/21/2024 (Approximate), Expires: 10/18/2025 documented as of this encounter Visit Diagnoses Diagnosis Blurred Vision- Primary documented in this encounter Additional Health Concerns Assessment Noted Time PHQ-9 Depression Total Score: 019 1:40 PM STEM ROLLER documented as of this encounter Care Teams Loss Prevention Agent Relationship Specialty Start Date End Date Elsewhere, Pcp PCP - General Family Medicine 11/21/20 documented as of this encounter
== END 2024-09-04 12:43 | disposition home or self-care (01) ==
LOC: ED 12:48
PROVIDERS: Emergency Provider Family Medicine
DX: H11.32 Conjunctival hemorrhage, left eye (principal)
CPT/HCPCS: 99282; 99283